=== PATIENT | female | born 1970 | race Caucasian/White ===

== ENCOUNTER 2017-11-04 19:00 | Observation (INO) | payer BC, SELFPAY ==
[2017-11-04 19:01] VITALS: BP 152/78; PULSE 79; RESP 16; TEMP 36.8; O2SAT 99; BMI 33.1
--- NOTE | 2017-11-04 19:44 | CT_ITS ---
STUDY: CT BRAIN WITHOUT CONTRAST REASON FOR EXAM: Female, 47 years old. History of seizures, dystonia RADIATION DOSAGE (If Supplied By Facility): CTDIvol = ( 44.99 ) mGy, DLP = ( 762.36 ) mGycm TECHNIQUE: Transaxial CT imaging of the brain was performed without administration of intravenous contrast material. Individualized dose optimization techniques were used for this CT. COMPARISON: Previous study of 11/14/2014 FINDINGS: There are several calcified scalp nodules measuring up to 1.4 cm. Normal calvarium. Normal size ventricles and extra-axial spaces for the patient's age. Normal white matter tracts of the cerebral hemispheres. Normal basal ganglia and thalami. Normal brainstem. Normal cerebellum. There is no intracranial hemorrhage. There are no findings of an acute ischemic infarction. Normal visualized paranasal sinuses. CT/Brain/Head without Contrast IMPRESSION: Normal unenhanced CT scan of the brain. There are several calcified scalp nodules measuring up to 1.4 cm, similar to the previous study. Electronically Signed: Travis Arreola MD at 20:33 EDT , Service support ,
--- NOTE | 2017-11-04 19:44 | EKG12_ITS ---
Test Reason : SEIZURE Blood Pressure : / mmHG Vent. Rate : 068 BPM Atrial Rate : 068 BPM P-R Int : 180 ms QRS Dur : 074 ms QT Int : 396 ms P-R-T Axes : 037 005 012 degrees QTc Int : 421 ms Normal sinus rhythm Normal ECG Confirmed by JEAN PAUL FINE MD ([id number]), newspaper or periodical editor PEEWEE ESCALANTE ([id number]) on 11/06/2017 2:40:31 PM Referred By: EVA Confirmed By:JEAN PAUL FINE MD
[2017-11-04] MEDS: 0.9% Normal Saline 1,000 ML 150 ML IV (19:51)
[2017-11-04 19:53] LABS: Absolute Lymphocyte Count 2.34 X10^3/ul (0.83-4.51); Absolute Neutrophil Count 5.2 X10^3/uL (2.0-7.7); Basophil# 0.04 X10^3/uL; Basophil% 0.5 % (0-1); Eosinophil# 0.11 X10^3/uL; Eosinophils% 1.3 % (0-5); Hematocrit 39.7 % (37-47); Hemoglobin 13.2 g/dl (12.0-15.0); Lymphocyte # 2.34 X10^3/ul (4.0); Lymphocyte % 27.6 % (19-41); Mean Corp Hgb Conc 33.2 g/gl (32-36); Mean Corpuscular Hgb 26.5 pg (27.0-32.0); Mean Corpuscular Volume 79.6 fL (81-99); Mean Platelet Vol. 10.2 fl (6.2-12.0); Monocyte# 0.77 X10^3/uL; Monocyte% 9.1 % (0-10); Neutrophil % 61.3 % (47-70); POSITIVE COUNT NO; POSITIVE DIFFERENTIAL NO; POSITIVE MORPHOLOGY NO; Platelet Count 313 K/mm3 (150-450); RBC Distribution Width CV 13.7 % (11.6-14.6); RBC Distribution Width SD 39.1 fl (35.1-43.9); Red Blood Count 4.99 M/mm3 (4.2-5.4); White Blood Count 8.5 K/mm3 (4.4-11.0)
[2017-11-04 19:56] LABS: Prothrombin Time (Protime)PT. 13.2 SECONDS (11.7-14.9)
[2017-11-04 19:57] LABS: Partial Thromboplast Time 29.8 Seconds (24.1-36.2)
[2017-11-04 20:06] LABS: Anion Gap 7 (5-15); BUN 13 mg/dL (7-18); BUN/Creat Ratio 16.8 RATIO (10-20); Calcium,Total 8.8 mg/dL (8.5-10.1); Chloride 100 mmol/L (98-107); Creatinine, Serum 0.78 mg/dL (0.55-1.02); EST Glomerular Filtration Rate 84 mL/min (>60); Est Glom Filt Rate - Afr Amer 102 mL/min (>60); Estimated Creatinine Clearance 72.17 ml/min; Glucose 94 mg/dL (74-106); Sodium Level 135 mmol/L (136-145)
--- NOTE | 2017-11-04 20:24 | ED.RN ---
THIS NURSE NOTED DYSTONIA IN BILATERAL HANDS AND FEET, BUT NO STROKE SX CURRENTLY.
--- NOTE | 2017-11-04 21:03 | ED.RN ---
DYSTONIA STILL NOTED IN BILATERAL EXTREMITIES, NO SIGNS OF CVA NOTED.
--- NOTE | 2017-11-04 21:13 | ED.DCSUM_ITS ---
- ER Visit Summary Date of Service: 11/04/17 Chief Complaint: Possible seizure History of Present Illness: The patient is a 47 F with a history of mild shaking seizures. She is currently on Trileptal. Today at 5:30 PM patient had an episode of upper extremity weakness and right facial droop. states this episode resolved after approximately 10 minutes. Symptoms then recurred at 5:50 PM and lasted approximately 5 minutes, then spontaneously resolved. Patient states she could hear her talking to her, but she could not respond. Patient also has a history of dystonia as well as seizures. Physical Examination: Vital signs gross unremarkable. Patient sitting upright in bed no acute distress. Head and neck examination is unremarkable. Heart is regular rate and rhythm. Lung sounds are clear. Abdomen is soft nontender. Neuro exam reveals dystonia with extremity movement, but no new deficits at this time over her baseline. Sensation is intact and normal throughout. Test Results: CBC and chemistry studies are unremarkable. Coags normal. Trileptal level was sent and pending. CT the head reveals normal brain. EKG is sinus at 68 with no sign of acute ischemia. Emergency Department Course and Treatment: Patient was given IV fluids. She has not had recurrent symptoms while in the emergency room. My concern is the patient is having TIAs. She will be admitted for further stroke workup. Treatment Plan: [] Disposition: Admit Impression: TIAs This note was generated with [email or web address] dictation software. It may contain incorrect words, spelling, and punctuation that were not noted in review of the chart prior to signing ED Disposition - Plan for ED Patient: Chief Complaint: Seizure Referrals: Dae Wylie MD [Primary Care Provider] -
--- NOTE | 2017-11-04 21:19 | PCM.HP.STD ---
Problem List (1) TIA (transient ischemic attack) Status: Acute (2) Seizure disorder Status: Chronic (3) Obesity (BMI 30.0-34.9) Status: Chronic History of Present Illness Date of Admission: 11/04/17 Chief Complaint: R facial droop, expressive aphasia The patient is a 47 y/o F w/ PMHx: Seizure disorder s/p Baclofen pump trial x 2, Chronic Dystonia (R sided), Obesity who presents to the [facility] ED on 11/04/17 with history of awakening at ~ 5:30 pm from a nap, walking into the living room where her was present and noted to appear weak, placing both arms on her legs for support while she sat w/ noticeable R facial droop and expressive aphasia which resolved after 10 minutes and then recurred at ~ 5:50 pm and lasted 5 minutes, again resolving with similar findings of expressive aphasia and R facial droop. She notes that she last saw her Neurologist ~ 9 months prior, Dr. Herbert with the [facility]. She notes she has been having more frequent seizures which she describes as benign and also notes auras associated. She has been keeping a journal. She notes still driving and being cleared to drive per Neurologist despite increased seizure activity with reported possible future plans to alter her AED regimen. Work-up in the ED included T 98.2, heart rate 79, BP 152/78, respiratory rate 16, 98% on room air, CBC unremarkable, coags unremarkable, BMP remarkable only for for sodium 135, troponin 0.024, pending oxcarbazepine level, CT brain unremarkable for acute findings with several calcified scalp nodules measuring up to 1.4 cm similar to prior studies. Past Medical History Past Medical History (Chronic Problems): Chronic Problems Seizure disorder (Chronic) Obesity (BMI 30.0-34.9) (Chronic) Allergies Sulfa (Sulfonamide Antibiotics) Allergy (Verified 11/14/14 17:33) Unknown Home Medications: Ambulatory Orders Medication Instructions Recorded Oxcarbazepine [Trileptal] 300 mg PO DAILY 01/24/14 Oxcarbazepine [Trileptal] 450 mg PO QHS 01/24/14 Ibuprofen [Motrin] 800 mg PO TID PRN PRN #21 tablet 11/14/14 Robaxin 1 tab PO BID 11/14/14 Surgical History: - - Carpal tunnel R, Baclofen pump placement and removal x 2 (no current pump in place). Psychiatric History: No pertinent psych hx SIDEROGRAPHER History: No pertinent SIDEROGRAPHER history Lives: Spouse/ Significant Other Smoking Status: Never smoker Tobacco Use: Non-smoker Alcohol: Occasional Drugs: None - *Family History Maternal History Items: Hypertension Paternal History Items: Diabetes, Hypertension Review of Systems Constitutional: Reports: Malaise, Weakness, Fatigue. Denies: Chills, Fever, Weight Change HEENT: Denies: Head Aches, Sinus Congestion, Sinus Drainage Cardiovascular: Denies: Chest Pain, Palpitations Respiratory: Denies: Cough, Shortness of breath at rest, Sputum production Gastrointestinal: Denies: Abdominal Pain, Nausea, Vomiting Genitourinary: Denies: Dysuria Musculoskeletal: Denies: Joint Pain, Joint Tenderness Skin: Denies: Rash, Wounds Neurological: Reports: Change in Speech, Slurred speech, Focal weakness, Incoordination, Numbness, Tremor, Seizures. Denies: Tingling Psychiatric: Denies: Anxiety, Depression, Homicidal Ideations, Suicidal Ideations Hematologic/ Lymphatic: Denies: Easy Bruising, Easy Bleeding VTE Information - Inpt Only VTE Present on Admission: No VTE Mechan Device Prophylaxis: SCD's VTE Pharm Prophylaxis ordered?: Yes Patient Problems: Active and Suspected Problems TIA (transient ischemic attack) (Acute) Subjective: Seated upright in the ED bed, notes return to her baseline, fatigued. Objective: Physical Examination: General: awake, alert, oriented x 3 and cooperative, seated upright in the ED bed in no apparent distress, notes being fatigued. Skin: normal color, turgor, no icterus, cyanosis. HEENT: AT/NC, EOMI, PERRLA, MMM, no carotid bruits or JVD noted. Lungs: CTA bilaterally, moderate effort, mild decrease BL bases, no rales, ronchi or wheezing. Heart: Regular rate and rhythm; no gallop, rub audible. Abdomen: soft, obese, NTTP, ND, normal BS, no HSM. Extremities: no cyanosis, clubbing, or edema. Neurological: patient awake, alert, oriented x 3; cognitive function intact; pupils equally reactive to light and accomodation; cranial nerves II-XII grossly normal, moving all 4 extremities with chronic severe appearing dystonia R sided, no focal specific deficits, strength intact, sensation subjectively mildly more sharp to the R face only including forehead, negative babinski, difficult to assess R FTN/HTS secondary to her chronic dystonia but baseline per her report, unremarkable L FTN, HTS. Psychiatric: affect appears normal, no acute evidence of depressive or anxiety feelings. - Physical Exam Vital Signs Temp Pulse Resp BP Pulse Ox 98.2 F 79 16 152/78 H 99 11/04/17 19:01 11/04/17 19:01 11/04/17 19:01 11/04/17 19:01 11/04/17 19:01 Oxygen Delivery Method Room Air Weight: 187 lb Body Mass Index (BMI) 33.1 Laboratory Tests Past 24 Hrs 11/04/17 11/04/17 11/04/17 19:20 19:20 19:20 WBC 8.5 RBC 4.99 Hgb 13.2 Hct 39.7 MCV 79.6 L MCH 26.5 L MCHC 33.2 RDW 13.7 RDW Differential 39.1 Plt Count 313 MPV 10.2 Immature Gran % (Auto) 0.200 Neut % (Auto) 61.3 Lymph % (Auto) 27.6 Wilkinson % (Auto) 9.1 Eos % (Auto) 1.3 Baso % (Auto) 0.5 Absolute Neuts (auto) 5.2 Absolute Lymphs (auto) 2.34 Total Counted Not Reportable PT 13.2 INR 1.0 APTT 29.8 Sodium 135 L Potassium 4.0 Chloride 100 Carbon Dioxide 28.0 Anion Gap 7 BUN 13 Creatinine 0.78 Estim Creat Clear Calc 72.17 Est GFR (MDRD) Af Amer 102 Est GFR (MDRD) Non-Af 84 BUN/Creatinine Ratio 16.8 Glucose 94 Calcium 8.8 Troponin I 0.024 Oxcarbazepine 11/04/17 19:20 WBC RBC Hgb Hct MCV MCH MCHC RDW RDW Differential Plt Count MPV Immature Gran % (Auto) Neut % (Auto) Lymph % (Auto) Wilkinson % (Auto) Eos % (Auto) Baso % (Auto) Absolute Neuts (auto) Absolute Lymphs (auto) Total Counted PT INR APTT Sodium Potassium Chloride Carbon Dioxide Anion Gap BUN Creatinine Estim Creat Clear Calc Est GFR (MDRD) Af Amer Est GFR (MDRD) Non-Af BUN/Creatinine Ratio Glucose Calcium Troponin I Oxcarbazepine Pending Assessment/Plan All Active Problems TIA (transient ischemic attack) (Acute) The patient is a 47 y/o F w/ PMHx: Seizure disorder s/p Baclofen pump trial x 2, Chronic Dystonia, Obesity who presents to the [facility] ED on 11/04/17 with history of awakening at ~ 5:30 pm from a nap, walking into the living room where her was present and noted to appear weak, placing both arms on her legs for support while she sat w/ noticeable R facial droop and expressive aphasia which resolved after 10 minutes and then recurred at ~ 5:50 pm and lasted 5 minutes, again resolving with similar findings of expressive aphasia and R facial droop. (1) Expressive aphasia and right facial droop concerning for TIA/CVA: Work-up in the ED included T 98.2, heart rate 79, BP 152/78, respiratory rate 16, 98% on room air, CBC unremarkable, coags unremarkable, BMP remarkable only for for sodium 135, troponin 0.024, pending oxcarbazepine level, CT brain unremarkable for acute findings with several calcified scalp nodules measuring up to 1.4 cm similar to prior studies. Will admit to PCU, will obtain MRI Brain, MRA Head and Neck, ECHO, PT/OT/Speech/Nutrition evaluation per protocol. Will consult Neurology for evaluation. Will monitor BP and initiate regimen if above goal, maintain on asa, add statin w/ AM FLP, fall precautions. Mag, TSH pending. Will maintain on seizure precautions but per description lower suspicion atypical seizure activity. (2) Seizure Disorder w/ Chronic Dystonia: Maintain on home tripletal regimen, pending ED level, current presentation not consistent with any prior seizures, history of baclofen pump x 2. She notes that she last saw her Neurologist ~ 9 months prior, Dr. Herbert with the [facility]. She notes she has been having more frequent seizures which she describes as benign and also notes auras associated. She has been keeping a journal. She notes still driving and being cleared to drive per Neurologist despite increased seizure activity with reported possible future plans to alter her AED regimen. Continue home robaxin regimen for her dystonia. (3) Obesity: Weight loss and lifestyle changes encouraged. (4) DVT prophylaxis: SCD, Lovenox. Code Visit OBSV E&M: 11224 Initial observation care L3
[2017-11-04 21:30] VITALS: BP 164/61; BP 166/62; PULSE 65; PULSE 68; RESP 18; RESP 22; TEMP 36.8; TEMP 36.9; O2SAT 100
[2017-11-04 22:05] VITALS: PULSE 66
[2017-11-04 22:25] VITALS: BP 159/84; BP 164/62; PULSE 64; RESP 18; TEMP 36.8; O2SAT 99
--- NOTE | 2017-11-04 22:27 | ECHOD_ITS ---
Reason For Study: TIA/Stroke Procedure This was a 2D Doppler, Color Flow transthoracic echocardiogram. Exam performed portable in patient room. Left Ventricle Normal LV size. Left ventricular systolic function is normal. The estimated ejection fraction is 60 %. Normal diastology for age. No regional wall motion abnormalities noted. Right Ventricle Normal RV size. Normal systolic function. Atria Normal left atrium. Normal right atrium. Bubble contrast study negative for right to left interatrial shunt. Mitral Valve Normal mitral valve. Trivial eccentric mitral valve insufficiency. Tricuspid Valve Normal tricuspid valve. Mild tricuspid valve insufficiency. Pulmonary artery systolic pressure is 24 mmHg. Aortic Valve Trisinus/trileaflet aortic valve. Pulmonic Valve Normal pulmonic valve. Great Vessels Normal aortic root. The pulmonary artery is normal size. Normal inferior vena cava. Pericardium/Pleural No pericardial effusion. Medication Performed a rapid injection of agitated mix of 9 cc saline and 1cc air to assess for atrial septal defect. MMode/2D Measurements & Calculations LVIDd: 4.8 cm IVSd: 0.92 cm Ao root diam: 2.3 cm LVIDs: 2.8 cm LVPWd: 0.83 cm RVDd: 3.1 cm FS: 41.2 % LAV(MOD-bp): 48.6 ml LVAd ap4: 27.8 cm2 SV(MOD-sp4): 56.5 ml LAV(MOD-bp) Indexed: 25.9 ml/m2 EDV(MOD-sp4): 84.1 ml LAV(MOD-sp2): 43.5 ml EDV(sp4-el): 86.2 ml LAV(MOD-sp4): 47.0 ml LVAs ap4: 14.1 cm2 ESV(MOD-sp4): 27.6 ml ESV(sp4-el): 27.1 ml EF(MOD-sp4): 67.2 % EF(sp4-el): 68.6 % SV(sp4-el): 59.1 ml LA A4 area: 18.0 cm2 RA A4 area: 11.9 cm2 Doppler Measurements & Calculations MV E max matt: 80.0 cm/sec Lat Peak E' Matt: 13.5 cm/sec Med Peak E' Matt: 8.3 cm/sec MV A max matt: 61.1 cm/sec E/E' lat: 5.9 E/E' med: 9.7 MV E/A: 1.3 Ao V2 max: 142.4 cm/sec LV V1 max: 117.0 cm/sec PA V2 max: 117.5 cm/sec Ao max P.1 mmHg LV V1 max P.5 mmHg Ao V2 mean: 101.9 cm/sec Ao mean P.5 mmHg Ao V2 VTI: 34.0 cm TR max matt: 227.7 cm/sec TR max P.7 mmHg Interpretation Summary Normal LV size. Left ventricular systolic function is normal. The estimated ejection fraction is 60 %. Bubble contrast study negative for right to left interatrial shunt. Mild tricuspid valve insufficiency. Ordering Physician: Shabana Hansen Referring Physician: Dae Wylie Performed By: Gianna Corrales RDCS, GUY
[2017-11-04 22:28] VITALS: BMI 34.7
[2017-11-04 22:39] VITALS: BMI 34.7
[2017-11-04 22:54] LABS: Magnesium 2.1 mg/dL (1.6-2.6); Thyroid Stim Hormone (TSH) 2.08 uIU/mL (0.358-3.74)
[2017-11-04 22:57] VITALS: BMI 34.7
[2017-11-04 23:00] VITALS: PULSE 62
[2017-11-04] MEDS: Acetaminophen 325 MG Tablet 650 MG PO (23:18)
[2017-11-04] MEDS: 0.9% NaCl Peripheral Flush Adult/Peds IV (23:20)
[2017-11-04] MEDS: Aspirin 81 MG TAB.CHEW PO (23:20)
[2017-11-04] MEDS: 0.9% Normal Saline 1,000 ML 100 ML IV (23:20)
[2017-11-04] MEDS: Famotidine 20 MG Tablet PO (23:20)
[2017-11-04] MEDS: OXcarbazepine 150 MG Tablet 450 MG PO (23:20)
[2017-11-05] VITALS (7 sets, daily range): BP systolic 136–146; BP diastolic 59–75; PULSE 55–75; RESP 16–18; TEMP 36.8; O2SAT 98–100; BMI 34.7
--- NOTE | 2017-11-05 05:00 | MRI_ITS ---
STUDY: MRA OF THE HEAD WITHOUT CONTRAST REASON FOR EXAM: Female, 47 years old. aphasia, rt facial droop, weakness. TECHNIQUE: 3-D [id number] (TOF) imaging was performed with MIPs. The study was performed unenhanced. COMPARISON: None. FINDINGS: Decreased size of the right cavernous carotid artery with a normal supraclinoid bifurcation. Normal left cavernous carotid artery with a normal supraclinoid bifurcation. Normal right A1 segments of the anterior cerebral artery. Normal left A1 segments of the anterior cerebral artery. Normal intact anterior communicating artery (ACOM). Normal bilateral A2 segments of the anterior cerebral arteries. Right MCA: There is irregularity of the right M1 segment with moderate luminal narrowing, suggesting atherosclerotic plaque formation, without an occlusion. The M2 branches are patent. Left MCA: There is irregularity of the left M1 branches with mild luminal narrowing, suggesting atherosclerotic plaque formation, without an occlusion. The M2 branches are patent. There is non-visualization of the right posterior communicating artery (PCOM). There is non-visualization of the left posterior communicating artery (PCOM). Normal bilateral vertebral arteries. Normal basilar artery with a normal basilar bifurcation. The visualized bilateral superior cerebellar (SCA) arteries are normal. Normal bilateral P1, P2 and visualized P3 segments of the posterior cerebral arteries. There is no demonstrated aneurysm of the [place]. There is no major vessel occlusion or hemodynamically significant stenosis. There is no demonstrated abnormality of the visualized brain. MRI/MRA Head ONLY without Contrast IMPRESSION: Moderate stenosis of the right M1. Mild stenosis of the left M1. Electronically Signed: Bernadine Luevano MD at 10:03 EDT Tel , Service support ,
--- NOTE | 2017-11-05 05:00 | MRI_ITS ---
STUDY: MRA NECK WITHOUT CONTRAST REASON FOR EXAM: Female, 47 years old. cva, rt facial droop, weakness, aphasia. TECHNIQUE: Source images were obtained, MIPs were performed. The study was performed unenhanced. COMPARISON: None. FINDINGS: RIGHT CAROTID ARTERIES: Normal right common carotid artery (CCA). Normal right common carotid bulb. Normal origin of the right internal carotid (ICA) artery without a hemodynamically significant stenosis. Normal visualized cervical portion of the right internal carotid artery. Normal origin of the right external carotid artery (ECA). LEFT CAROTID ARTERIES: Normal left common carotid artery (CCA). Normal left common carotid bulb. Normal origin of the left internal carotid (ICA) artery without a hemodynamically significant stenosis. Normal visualized cervical portion of the left internal carotid artery. Normal origin of the left external carotid artery (ECA). VERTEBRAL ARTERIES: Normal antegrade flow within the bilateral vertebral artery without a hemodynamically significant stenosis. MRI/MRA Neck without Contrast IMPRESSION: Normal bilateral cervical carotid and vertebral arteries. Electronically Signed: Bernadine Luevano MD at 9:28 EDT Tel , Service support ,
--- NOTE | 2017-11-05 05:00 | MRI_ITS ---
STUDY: MRI BRAIN WITHOUT CONTRAST REASON FOR EXAM: Female, 47 years old. cva, rt facial droop,aphasia,weakness. TECHNIQUE: Standardized multiplanar fat and water weighted pulse sequences were obtained. COMPARISON: None. FINDINGS: Normal size of the ventricles and extra-axial spaces for the patient's age. Normal white matter tracts of the supratentorial brain. Normal bilateral basal ganglia. Normal thalami. There is no extra-axial fluid accumulation. Normal flow voids within the major intracranial circulation suggesting patency by spin echo criteria. Normal sella turcica, pituitary gland, infundibular stalk, optic chiasm and hypothalamus. Normal tectal plate and pineal gland. Normal midbrain, vinayak and medulla. Normal cerebellum. Normal basal cisterns. Normal bilateral temporal bones. Normal bilateral internal auditory canals. No demonstrated orbital abnormality, within the constraints of a routine brain study. Normal visualized paranasal sinuses. Normal calvarium and skull base. Normal visualized soft tissue structures. Normal visualized upper cervical spine. MRI/Brain without Contrast IMPRESSION: Normal unenhanced MRI of the brain. Electronically Signed: Bernadine Luevano MD at 9:26 EDT Tel , Service support ,
[2017-11-05 07:00] LABS: Cholesterol 175 mg/dL (200); High Density Lipoprotein 62 mg/dL; Triglycerides 56 mg/dL; Very Low Density Lipoprotein 11 mg/dL (5-40)
[2017-11-05] MEDS: Famotidine 20 MG Tablet PO (07:33)
[2017-11-05] MEDS: OXcarbazepine 300 MG Tablet PO (07:33)
[2017-11-05] MEDS: Aspirin 81 MG TAB.CHEW PO (07:34)
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
[2017-11-05] MEDS: Methocarbamol 500 MG Tablet PO (10:06)
[2017-11-05] MEDS: 0.9% NaCl Peripheral Flush Adult/Peds IV (10:06)
[2017-11-05] MEDS: 0.9% Normal Saline 1,000 ML 100 ML IV (10:07)
--- NOTE | 2017-11-05 14:10 | DCINST_ITS ---
- Discharge Diagnoses Current Active Problems: Current Active and Chronic Problems TIA (transient ischemic attack) (Acute) Seizure disorder (Chronic) Obesity (BMI 30.0-34.9) (Chronic) You will use the following diet at home:: No restrictions Your food should be the consistency of: Regular Your liquids should be the consistency of: Regular/Thin Discharge Activity: May Not Drive Call your doctor if you observe: Dizziness, Fainting spells Allergies/Adverse Reactions: Allergies Sulfa (Sulfonamide Antibiotics) Allergy (Verified 11/14/14 17:33) Unknown Medications to take at Discharge Oxcarbazepine [Trileptal] 300 mg PO DAILY 01/24/14 Oxcarbazepine [Trileptal] 450 mg PO QHS 01/24/14 Ibuprofen [Motrin] 800 mg PO TID PRN PRN #21 tablet 11/14/14 Methocarbamol [Robaxin] 1,000 mg PO QHS 11/05/17 Methocarbamol [Robaxin] 500 mg PO DAILY 11/05/17 Primary Care Physician: Dae Wylie MD [Primary Care Provider] - Please follow up with your Primary Care Physician in: 3-5 days Test Results: Test results from this visit will be discussed in further detail at your follow- up appointment, if applicable. Please Follow Up With: Dr. Taylor When: 3-5 days
--- NOTE | 2017-11-05 14:10 | PCM.DC.SUM ---
Discharge Date and Diagnosis - Problem List Patient Problems: Active and Suspected Problems TIA (transient ischemic attack) (Acute) Date of Admission: 11/04/17 Date of Discharge: 11/05/17 - Primary Discharge Diagnosis Active and Suspected Problems TIA (transient ischemic attack) (Acute) - Secondary Discharge Diagnosis Chronic Problems Seizure disorder (Chronic) Obesity (BMI 30.0-34.9) (Chronic) Hospital Course and Treatment Imaging Results: Brain MRI: IMPRESSION: Normal unenhanced MRI of the brain. Head MRA: IMPRESSION: Moderate stenosis of the right M1. Mild stenosis of the left M1. Neck MRA: IMPRESSION: Normal bilateral cervical carotid and vertebral arteries. Consults: Neurology Operations: None Procedures: None Summary of Care Provided: HPI: The patient is a 47 y/o F w/ PMHx: Seizure disorder s/p Baclofen pump trial x 2, Chronic Dystonia (R sided), Obesity who presents to the [facility] ED on 11/04/17 with history of awakening at ~ 5:30 pm from a nap, walking into the living room where her was present and noted to appear weak, placing both arms on her legs for support while she sat w/ noticeable R facial droop and expressive aphasia which resolved after 10 minutes and then recurred at ~ 5:50 pm and lasted 5 minutes, again resolving with similar findings of expressive aphasia and R facial droop. She notes that she last saw her Neurologist ~ 9 months prior, Dr. Herbert with the [facility]. She notes she has been having more frequent seizures which she describes as benign and also notes auras associated. She has been keeping a journal. She notes still driving and being cleared to drive per Neurologist despite increased seizure activity with reported possible future plans to alter her AED regimen. Work-up in the ED included T 98.2, heart rate 79, BP 152/78, respiratory rate 16, 98% on room air, CBC unremarkable, coags unremarkable, BMP remarkable only for for sodium 135, troponin 0.024, pending oxcarbazepine level, CT brain unremarkable for acute findings with several calcified scalp nodules measuring up to 1.4 cm similar to prior studies. Vital Signs - 24 hr Temp Pulse Resp BP BP Pulse Ox 11/05/17 11:23 98 11/05/17 11:00 60 11/05/17 10:00 98.2 F 75 16 136/75 H 100 11/05/17 07:00 55 L 11/05/17 05:59 98.2 F 57 L 18 146/60 H 99 11/05/17 03:00 60 11/05/17 02:10 98.2 F 61 18 142/59 H 99 11/04/17 23:00 62 11/04/17 22:25 98.2 F 64 18 159/84 H 164/62 H 99 11/04/17 22:05 66 11/04/17 21:30 98.2 F 68 18 166/62 H 100 11/04/17 19:01 98.2 F 79 16 152/78 H 99 General: Alert, Oriented x3, Cooperative, No apparent distress HEENT: Atraumatic, PERRLA, EOMI, Normocephalic Oral: Moist Mucosa Neck: Supple, No JVD Lungs: Clear to auscultation, Normal air movement, No rhonchi, No wheeze, No rales Cardiovascular: Regular rate, Regular Rhythm, Normal S1, Normal S2, No murmurs Abdomen: Soft, Non Tender, Non-Distended, No Hepato-splenomegaly Extremities: No edema, Capillary Refill Less than 3 Seconds Skin: No rashes, No breakdown Neurological: Cranial nerves II-XII grossly intact, Motor Exam 5/5 strength throughout, Sensory exam intact to light touch and pain, tremor in the RUE Psych/Mental Status: Normal Affect, Appropriate Hospital Course: 1. Seizure/Movement disorder - Presented because the presentation of this seizure was different than her usual with a facial droop. Stroke work-up was negative and she was cleared for discharge by Neurology on only her home medications. She states that she has been having more frequent seizure and the trileptal was her first antiepileptal medications she was tried on. She does want to go home and I expressed that she is not allowed to drive under any circumstance which she agrees to. She is to f/u with her neurologist at the [facility] for possible medication adjustment. She would like to eventually find a neurologist closer to home if possible. She did not have a seizure while in the hospital. Discharge Activity: May Not Drive Call your doctor if you observe: Dizziness, Fainting spells Home Medications: Medications to take at Discharge Oxcarbazepine [Trileptal] 300 mg PO DAILY 01/24/14 Oxcarbazepine [Trileptal] 450 mg PO QHS 01/24/14 Ibuprofen [Motrin] 800 mg PO TID PRN PRN #21 tablet 11/14/14 Methocarbamol [Robaxin] 1,000 mg PO QHS 11/05/17 Methocarbamol [Robaxin] 500 mg PO DAILY 11/05/17 Primary Care Physician: Dae Wylie MD [Primary Care Provider] - Please follow up with your Primary Care Physician in: 3-5 days Please Follow Up With: Dr. Taylor When: 3-5 days Disposition: Home Minutes spent on discharge:: 35 Patient Condition:: Good Medical Necessity - Tobacco Use Smoking Status: Never smoker Tobacco Use: Non-smoker Meaningful Use Info Meaningful Use Diagnoses (Choose all that apply): None applicable Code Visit Inpatient E&M: 38870 Disch Hosp
--- NOTE | 2017-11-05 14:48 | PHA.DC.MR ---
Pharmacy Service has performed discharge medication reconciliation for this patient. No new medications added from this admission, home medications reviewed. The patient's discharge medication list was reviewed for discrepancies and discrepancies were resolved.
[2017-11-08 13:42] LABS: Trileptal-Oxcarbazepine 28 ug/mL (10-35)
== END 2017-11-05 15:17 | disposition home or self-care (01) ==
LOC: ED 20:15 → PCU 21:47
PROVIDERS: Admitting Provider Family Medicine; Emergency Provider Emergency Medicine; Family Provider Family Medicine; PCP Family Medicine; Visit Provider Family Medicine
DX: R41.82 Altered mental status, unspecified (principal); G40.909 Epilepsy, unspecified, not intractable, without status epilepticus; R29.810 Facial weakness; R53.1 Weakness; E66.9 Obesity, unspecified; G24.9 Dystonia, unspecified; R47.01 Aphasia; Z79.899 Other long term (current) drug therapy; Z68.34 Body mass index [BMI] 34.0-34.9, adult; Z71.3 Dietary counseling and surveillance; R47.81 Slurred speech; I07.1 Rheumatic tricuspid insufficiency
CPT/HCPCS: 36415; 70450; 70544; 70547; 70551; 80048; 80061; 82542; 83735; 84443; 84484; 85025; 85610; 85730; 93005; 93306; 96360; 96361; 97802; 99218; 99283; J7030; A4216; G0378

== ENCOUNTER → 2018-03-01 17:44 | Outpatient (CLI) | payer BC, SELFPAY ==
--- NOTE | 2018-03-01 17:45 | MRI_ITS ---
STUDY: MRI CERVICAL SPINE WITHOUT CONTRAST REASON FOR EXAM: Female, 47 years old. Dystonia and paresthesia TECHNIQUE: Standardized fat and water weighted pulse sequences were obtained in the sagittal and axial planes. COMPARISON: None FINDINGS: Normal foramen magnum and brainstem-cervical cord junction. Normal craniovertebral junction. Normal anterior atlantoaxial articulation. Normal odontoid process. Decreased cervical lordosis. Normal vertebral bodies and posterior osseous elements. C2-3: Normal endplates. Normal disc height, signal and morphology. Normal central canal and intervertebral neural foramina. C3-4: Normal endplates. Normal disc height, signal and morphology. Normal central canal and intervertebral neural foramina. C4-5: Normal endplates. Normal disc height, signal and morphology.. Normal central canal and intervertebral neural foramina. C5-6: Normal endplates. Normal disc height, signal and minor bulging of the disc.. Normal central canal and intervertebral neural foramina. C6-7: Normal endplates. Normal disc height, signal and morphology. Normal central canal and intervertebral neural foramina. C7-T1: Normal endplates. Normal disc height, signal and morphology. Normal central canal and intervertebral neural foramina. Normal cervical cord. Normal visualized soft tissue structures. MRI/Spine Cervical (Routine) IMPRESSION: No evidence for acute fracture or other bony pathology. Minor bulging of the disc. Without spinal stenosis or cord compression. Electronically Signed: Pablito Landrum MD at 19:23 EST , Service support ,
== END ==
PROVIDERS: Family Provider Family Medicine; PCP Family Medicine; Referring Provider Clinical Nurse Specialist Acute Care; Visit Provider Clinical Nurse Specialist Acute Care
DX: G24.9 Dystonia, unspecified (principal); R20.2 Paresthesia of skin
CPT/HCPCS: 72141

== ENCOUNTER 2019-08-26 11:02 | Emergency (ER) | payer BC, SELFPAY ==
[2019-08-26 11:03] VITALS: BP 180/89; PULSE 104; RESP 20; TEMP 36.3; O2SAT 99; BMI 35.7
--- NOTE | 2019-08-26 11:26 | VDLE_ITS ---
Reason For Study: pain Procedure LEFT Exam performed portable in ED. GSV is normal. The exam was abbreviated due to the COVID 19 CFV is compressible, spontaneous, phasic, protocol. competent, and demonstrates normal The exam was diagnostic. augmentation. A preliminary report was called and/or faxed FV is compressible, spontaneous, phasic, to Dr. Uriarte. competent and demonstrates normal augmentation. POP V is compressible, spontaneous, phasic, competent and demonstrates normal augmentation. T/P Trunk is compressible. PTV is compressible. LT PerV is compressible. Interpretation Summary There is no evidence of left lower extremity deep vein thrombosis. Left great saphenous vein appears patent and compressible segmentally. Abbreviated Covid-19 protocol Ordering Physician: Gerardo Uriarte Performed By: Thony Griffiths RVT
--- NOTE | 2019-08-26 11:28 | ED.VIS.GEN ---
History of Present Illness Chief Complaint: Wound Narrative: 48-year-old female presenting with left leg pain which was fleeting earlier. She states she could see her varicosity on her left leg bulging. She had some tingling in her leg which is now gone. She has been able to ambulate. She has no history of DVT/PE. She is not on blood thinners. Past Medical History - Allergies and Home Meds Allergies/Adverse Reactions: Allergies Sulfa (Sulfonamide Antibiotics) Allergy (Verified 08/26/19 11:05) Unknown Primary Care Physician: Dae Wylie MD [Primary Care Provider] - Prior records reviewed: Yes Surgical History: - - Carpal tunnel R, Baclofen pump placement and removal x 2 (no current pump in place). Smoking Status: Never smoker Drugs: None - Family History Maternal Family History: Reports: Hypertension Paternal Family History: Reports: Diabetes, Hypertension Review of Systems General: Denies: Chills, Fever Eyes: Denies: Visual changes - bilaterally, Diplopia ENT: Denies: Rhinorrhea, Sore throat Cardiovascular: Denies: Chest pain, Palpitations, Heart racing Respiratory: Denies: Dyspnea, Cough Gastrointestinal: Denies: Abdominal pain Musculoskeletal: Reports: Extremity Pain - Left leg pain in the calf Skin: Denies: Rash, Abscess Psych: Denies: Depression, Anxiety Hematologic: Denies: Easy bruising, Easy bleeding Physical Exam Vital Signs/Narrative: Vital Signs Temp Pulse Resp BP Pulse Ox 08/26/19 11:03 97.4 F L 104 H 20 H 180/89 H 99 Inital Vital Signs reviewed: Yes General: Well nourished Eyes: Perrl, EOMI Cardiovascular: Regular rate, Regular rhythm Respiratory: No distress Extremities: - - Varicosities noted on the left lower extremity. These are nontender. Pedal pulses are intact in the left foot. There is no obvious edema. Sensation and motor is intact. Skin: - - Varicosities as described above Neurological: Alert, Oriented x3 Psychological: Normal affect Diagnostic/Tx/Re-eval Duplex left lower extremity: Negative for DVT. - Medical Decision Making Presents with a cramping leg pain and states that her varicosity was bulging. On examination her pain is resolved. There is no bulging varicosity. Neuromotor is all intact. Pulses are intact. Patient had DVT study which was negative. patient will be discharged home in stable condition. She is given return precautions. ED Disposition - Plan for ED Patient: Disposition: Home or Assisted Living Diagnosis: Leg pain, left, Varicose vein of leg Instructions: ED Veins Varicose Referrals: Dae Wylie MD [Primary Care Provider] -
== END 2019-08-26 12:23 | disposition home or self-care (01) ==
LOC: ED 12:14
PROVIDERS: Emergency Provider Student in an Organized Health Care Education/Training Program; PCP Family Medicine
DX: M79.605 Pain in left leg (principal); I83.92 Asymptomatic varicose veins of left lower extremity; Z79.82 Long term (current) use of aspirin
CPT/HCPCS: 93971; 99282

== ENCOUNTER → 2019-09-24 13:29 | Outpatient (CLI) | payer BC, SELFPAY ==
[2019-08-26 11:03] VITALS: BMI 35.7
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
== END ==
PROVIDERS: PCP Family Medicine; Referring Provider Family Medicine; Visit Provider Family Medicine
DX: R13.12 Dysphagia, oropharyngeal phase (principal)
CPT/HCPCS: 74230; 92611

== ENCOUNTER 2019-10-09 19:17 | Emergency (ER) | payer BC, SELFPAY ==
[2019-10-09 19:18] VITALS: BP 153/96; PULSE 85; RESP 18; TEMP 36.6; O2SAT 99; BMI 31.5
--- NOTE | 2019-10-09 20:46 | ED.DCSUM_ITS ---
History of Present Illness Chief Complaint: Lower Extremity Injury Informant: Patient Narrative: 48-year-old female presenting for left medial leg pain and swelling. She states it is also warm to the touch. She does not remember any injury to this area. This started earlier this afternoon and has become less red but is more spread out in this area. She states prior to this she had a bulging vein which is now gone. No history of DVT/PE. She is had an episode of this before which self re solved a he did have a DVT study previously. This was negative. No systemic signs or symptoms. - Past Medical History (1) TIA (transient ischemic attack) Status: Chronic (2) Seizure disorder Status: Chronic Past Medical History - Allergies and Home Meds Allergies/Adverse Reactions: Allergies Sulfa (Sulfonamide Antibiotics) Allergy (Verified 10/09/19 19:18) Unknown Primary Care Physician: Dae Wylie MD [Primary Care Provider] - Prior records reviewed: Yes Past Medical History: - - Reviewed and problem list Surgical History: noncontributory, - - Carpal tunnel R, Baclofen pump placement and removal x 2 (no current pump in place). Lives: With Family Smoking Status: Never smoker Alcohol: None Drugs: None - Family History Maternal Family History: Reports: Hypertension Paternal Family History: Reports: Diabetes, Hypertension Review of Systems General: Denies: Chills, Fever, Sweats Eyes: Denies: Visual changes - bilaterally, Diplopia ENT: Denies: Rhinorrhea, Sore throat Cardiovascular: Denies: Chest pain, Palpitations Respiratory: Denies: Dyspnea, Cough, Dyspnea on exertion Gastrointestinal: Denies: Abdominal pain, Nausea, Vomiting, Diarrhea, Melena, Hematochezia Genitourinary: Denies: Dysuria, Hematuria, Frequency Musculoskeletal: Reports: Extremity Pain - Left medial upper calf pain, - Skin: Reports: Rash - Left medial upper calf Neurological: Denies: Headache, Weakness Physical Exam Vital Signs/Narrative: Vital Signs Temp Pulse Resp BP Pulse Ox 10/09/19 19:18 97.8 F 85 18 153/96 H 99 General: Well nourished, No Acute Distress Head: Normocephalic, Atraumatic Eyes: Perrl, EOMI Cardiovascular: Regular rate, Regular rhythm Respiratory: No distress, CTA bilaterally Extremities: Nontender, No edema Skin: Rash - 4 centimeter circular area of erythema and warmth on the upper medial left calf. The skin is slightly indurated in this area. This is tender to touch. Calf compartments are soft. Diagnostic/Tx/Re-eval Clinical Impression(s) from Imaging Studies Venous Duplex 10/09/19 20:56 IMPRESSION: No evidence of deep venous thrombosis in the left lower extremity. Thrombosed superficial veins in the left upper medial calf. Electronically Signed: Jose Sierra, at 22:00 EDT Tel , Service support , - Medical Decision Making Patient presents with left medial upper calf pain. She states it was more red prior to arrival and seems to be dissipating. It does appear that It slightly inflamed in this area. Patient states that she had a bulging vein i n this area prior to the episode. Duplex of the left lower extremity which shows superficial thrombophlebitis which would fit with her story. She is counseled on NSAIDs and ice for pain. I do not believe she needs antibiotics at this time. Patient will be discharged home in stable condition. Impression: 1. Superficial thrombophlebitis ED Disposition - Plan for ED Patient: Disposition: Home or Assisted Living Instructions: ED Phlebitis Superficial Referrals: Dae Wylie MD [Primary Care Provider] -
--- NOTE | 2019-10-09 20:56 | US_ITS ---
STUDY: VENOUS DOPPLER ULTRASOUND - LEFT LOWER EXTREMITY REASON FOR EXAM: Female, 48 years old. LT UPPER MEDIAL CALF AREA OF HEAT AND REDNESS WITH PALP LUMPS TECHNIQUE: Ultrasound evaluation of the deep vein system to include batista-scale imaging and compression was performed. Batista-scale imaging and Doppler sonographic evaluation, including duplex spectral analysis and qualitative color flow sonography, was performed. COMPARISON: None. FINDINGS: Common Femoral Vein: Normal compression, spontaneity and augmentation. Normal color Doppler. Common Femoral Vein/Greater Saphenous Junction: Normal compression, spontaneity and augmentation. Normal color Doppler. Femoral Proximal: Normal compression, spontaneity and augmentation. Normal color Doppler. Femoral Middle: Normal compression, spontaneity and augmentation. Normal color Doppler. Femoral Distal: Normal compression, spontaneity and augmentation. Normal color Doppler. Popliteal Vein: Normal compression, spontaneity and augmentation. Normal color Doppler. Posterior Tibial Vein: Normal compression, spontaneity and augmentation. Normal color Doppler. Peroneal Vein: Normal compression, spontaneity and augmentation. Normal color Doppler. There are thrombosed superficial veins in the left upper medial calf. US/Venous Duplex Imag/Limited/Uni IMPRESSION: No evidence of deep venous thrombosis in the left lower extremity. Thrombosed superficial veins in the left upper medial calf. Electronically Signed: Jose Sierra, at 22:00 EDT Tel , Service support ,
[2019-10-09 22:42] VITALS: BP 127/95; PULSE 78; RESP 15; O2SAT 98
== END 2019-10-09 22:44 | disposition home or self-care (01) ==
LOC: ED 20:53
PROVIDERS: Emergency Provider Student in an Organized Health Care Education/Training Program; PCP Family Medicine
DX: I80.02 Phlebitis and thrombophlebitis of superficial vessels of left lower extremity (principal); G40.909 Epilepsy, unspecified, not intractable, without status epilepticus; Z86.73 Personal history of transient ischemic attack (TIA), and cerebral infarction without residual deficits; Z79.82 Long term (current) use of aspirin
CPT/HCPCS: 93971; 99282

== ENCOUNTER → 2020-02-23 14:33 | Outpatient (CLI) | payer BC, SELFPAY ==
--- NOTE | 2020-02-23 14:35 | VDLE_ITS ---
Reason For Study: Leg Pain RIGHT LEFT CFV is compressible, spontaneous, phasic, GSV is normal. competent and demonstrates normal CFV is compressible, spontaneous, phasic, augmentation. competent, and demonstrates normal Procedure augmentation. Exam performed in department. FV is compressible, spontaneous, phasic, A preliminary report was called and/or faxed competent and demonstrates normal to Dr. Coffey. augmentation. POP V is compressible, spontaneous, phasic, competent and demonstrates normal augmentation. T/P Trunk is compressible. PTV is compressible. LT PerV is compressible. Lt knee varicosity is dilated and non compressible consistent with acute SVT, small segment. Interpretation Summary Deep veins of the left lower extremity are patent and compressible segmentally. There is no evidence of left lower extremity deep vein thrombosis. Valvular competence appears intact within the proximal deep venous system on the left . The left great saphenous vein appears patent and compressible segmentally. Acute superficial thrombophlebitis is noted in a superficial varicosity near the left knee. Ordering Physician: Anatoly Coffey Referring Physician: Dae Wylie Performed By: Gianna Corrales, [place], RVT
== END ==
PROVIDERS: PCP Family Medicine; Referring Provider Surgery; Visit Provider Surgery
DX: I80.3 Phlebitis and thrombophlebitis of lower extremities, unspecified (principal)
CPT/HCPCS: 93971

== ENCOUNTER 2020-03-03 15:00 | Outpatient (RCR) | payer BC, SELFPAY ==
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
== END 2020-03-03 19:00 | disposition home or self-care (01) ==
LOC: SP 15:00
PROVIDERS: PCP Family Medicine
DX: R49.8 Other voice and resonance disorders (principal); R13.10 Dysphagia, unspecified
CPT/HCPCS: 92507; 92526; 92610

== ENCOUNTER 2020-03-31 15:00 | Outpatient (RCR) | payer BC, SELFPAY | END 2020-03-31 19:00 | disposition home or self-care (01) | LOC: SP 15:00 | PROVIDERS: PCP Family Medicine | DX: R49.8 Other voice and resonance disorders (principal); R13.10 Dysphagia, unspecified ==

== ENCOUNTER 2021-05-24 14:00 | Outpatient (RCR) | payer BC, SELFPAY ==
--- NOTE | 2020-10-18 15:05 | HP.PTEVAL_ITS ---
Patient's Visit Information JULIAN BLACK is a 49 year old F referred to Physical Therapy by DONNY ROSS with a diagnosis of Dystonia. Date of Evaluation: 10/18/20 Physical Therapist: Troy Saunders, PT, ATC - Visit Plan Frequency: 2-3x /Week Duration: 4-6 Weeks Plan: B LE strengthening and stretching, balance and prorio ex's, core strengthening, nustep, and HEP - Subjective Pt reports she has dystonia for over 19 years. Pt reports her condition is is not supposed to progress, but it has been for over the past 6 months. Pt notes that her R hand and ankle keep wanting to turn inwards on her. Pt notes she has noticed an increase in unsteady gait over this span as well. Pt reports she had PT for this in 2011 which worked more on stretching and strengthening, as well as gait training in order to help her balance. Pt reports her main reason for being here today is to get help for her balance and help alleviate some of her pain in the R ankle/foot, as well as her R hand. Pt reports 4/10 pain in her R hand and foot currently, 8/10 pain at worst (with increased activity. - Pain R hand and foot Pain Intensity (Out of 10): 4 Pain Intensity Range: 8 - Objective Neuro: B UE and LE sensation is WNL to light touch. B patellar and bicepital reflex= 2/3. Hand ROM: R wrist extension is moderately limited when compared bilaterally. Unable to assess true measure due to dystonia. Ankle ROM: B ankle DF ROM is grossly 0 degrees. MMT: B LE's are grossly 4/5 throughout. FGA: 09/03- significant fall risk at this time. Recommended pt to use walker with commun ity ambulation - Balance/Special Test Scores Functional Gait Assessment Score: 7 % Disability: 76.6700 Lower Extremity Functional Score: 53 - Goals Goal 1:: Increase B LE strength x 1 grade to aid with IADL's Goal Time Frame: 4-6 Weeks Goal 2:: Increase ankle DF ROM and wrist ext ROM x 5-10 degrees to aid with decreasing pain Goal 3:: Increase FGA score x 3-5 points to aid with preventing LOB episodes in the future Goal Time Frame: 4-6 Weeks Goal 4:: I with HEP Goal Time Frame: 4-6 Weeks - Rehabilitation Potential Physical Therapy Diagnosis: Pt has LE weakness, UE and LE contractures, and unsteady gait secondary to dystonia Rehabilitation Potential: Good - Anticipated Interventions Patient/Client Instruction: Educate patient on: Condition, Plan of Care For the Purpose of:: To improve self management Therapeutic Exercise to Include: Strength training, Endurance training, Balance training, Flexibilty training, Gait and locomotor training, Dynamic Lumbar Stabilization For the Purpose of:: To decrease pain, To increase ROM, To improve muscle performance and motor function Thank you for the opportunity to evaluate your patient. For Medicare and Medicare HMO plans, please review the plan of care and approve it. It will need to be FAXED BACK to us at [phone] for Medicare purposes. For Medicare only, by signing this I certify the plan of care. Please let me know if there are questions or concerns regarding this plan of care. Physician Signature: Date:
--- NOTE | 2020-12-02 16:05 | HP.PTREVAL ---
DONNY ROSS, It has been my pleasure to treat JULIAN BLACK over the last 10 visits for Dystonia. Please see the progress note below for an update on the physical therapy plan of care! Subjective: Pt reports she continues to notice significant improvements with her balance. Pt reports her doctor was really pleased with her progress yesterday. Objective/Function: B LE MMT 4+/5 throughout. Ankle DF ROM: R= 8, L= 10 degrees. Wrist ext ROM: R= 60, L= 70 degrees. FGA: 12/04 Plan Plan: B LE strengthening and stretching, balance and prorio ex's, core strengthening, nustep, and HEP Balance/Gait/Functional tests - Balance/Special Test Scores Functional Gait Assessment Score: 10 % Disability: 66.6700 Lower Extremity Functional Score: 61 Goals Goal 1:: Increase B LE strength x 1 grade to aid with IADL's Goal Time Frame: 4-6 Weeks Goal Progress: Progressing Goal 2:: Increase ankle DF ROM and wrist ext ROM x 5-10 degrees to aid with decreasing pain Goal Progress: Goal Met Goal 3:: Increase FGA score x 3-5 points to aid with preventing LOB episodes in the future Goal Time Frame: 4-6 Weeks Goal Progress: Goal Met Goal 4:: I with HEP Goal Time Frame: 4-6 Weeks Goal Progress: Progressing Goal 5:: Increase FGA x 30 to aid with preventing future falls Goal Time Frame: 4-6 Weeks Anticipated Interventions Patient/Client Instruction: Educate patient on: Condition, Plan of Care For the Purpose of:: To improve self management Therapeutic Exercise to Include: Strength training, Endurance training, Balance training, Flexibilty training, Gait and locomotor training, Dynamic Lumbar Stabilization For the Purpose of:: To decrease pain, To increase ROM, To improve muscle performance and motor function Please do not hesitate to contact me at [phone] by phone or if you have questions or concerns regarding this new plan of care! Sincerely, Troy Saunders, PT, ATC
--- NOTE | 2020-12-23 15:55 | HP.PTREVAL ---
DONNY ROSS, It has been my pleasure to treat JULIAN BLACK over the last 16 visits for Dystonia. Please see the progress note below for an update on the physical therapy plan of care! Subjective: Pt reports she has continued to feel significant improvements since the beginning of PT Objective/Function: B LE MMT: / throughout. FGA now 02/03. Pt is able to ambulate 340' with Mod A performing FGA on this date. Pt is progressing well toward Rx goals. Plan Plan: B LE strengthening and stretching, balance and proprio ex's, core strengthening, nustep, and HEP. Consider adding cuff weight to ankles to see if it helps with gait pattern and exercises. Balance/Gait/Functional tests - Balance/Special Test Scores Functional Gait Assessment Score: 12 % Disability: 60.0000 Lower Extremity Functional Score: 61 Goals Goal 1:: Increase B LE strength x 1 grade to aid with IADL's Goal Time Frame: 4-6 Weeks Goal Progress: Goal Met Goal 2:: Increase ankle DF ROM and wrist ext ROM x 5-10 degrees to aid with decreasing pain Goal Progress: Goal Met Goal 3:: Increase FGA score x 3-5 points to aid with preventing LOB episodes in the future Goal Time Frame: 4-6 Weeks Goal Progress: Goal Met Goal 4:: I with HEP Goal Time Frame: 4-6 Weeks Goal Progress: Progressing Goal 5:: Increase FGA x /30 to aid with preventing future falls Goal Time Frame: 4-6 Weeks Goal Progress: Progressing Goal 6:: Pt will be able to ambulate with weighted vest 4# 2 laps performing FGA to improve fluidity of gait Goal Time Frame: 2-4 Weeks Goal Progress: New goal Anticipated Interventions Patient/Client Instruction: Educate patient on: Condition, Plan of Care For the Purpose of:: To improve self management Therapeutic Exercise to Include: Strength training, Endurance training, Balance training, Flexibilty training, Gait and locomotor training, Dynamic Lumbar Stabilization For the Purpose of:: To decrease pain, To increase ROM, To improve muscle performance and motor function Please do not hesitate to contact me at [phone] by phone or if you have questions or concerns regarding this new plan of care! Sincerely, Troy Saunders, PT, ATC
--- NOTE | 2021-01-27 10:25 | HP.PTREVAL_ITS ---
DONNY ROSS, It has been my pleasure to treat JULIAN BLACK over the last 24 visits for Dystonia. Please see the progress note below for an update on the physical therapy plan of care! Subjective: Pt. reports overall being 75% better. She is still having some neck pain. She is planning to have neck injections again in February. She has been having success with the weighted vest and is looking into getting a weighted sports bra to simulate this at home. Objective/Function: I trialed DN this date in her cervical spine, B UT, B erector spinae and B sub occipitals. Pt. reports no adverse reaction. I had multiple LTR mostly in R UT. She had good stability/coordination while doing activities with wt. vest on. She was walking and bouncing lacrosse ball both in one hand and with crossing midline. She does very well with correcting her loss of balance, but still has writhing movements at times. I want her working on ve ry specific movements on various surfaces. I talked to her about repetition being landry with her motor control. Plan Plan: Pt. to be seen x1 per week for 4-6 weeks. Work on cervical pain/muscle tone. Cont. with balance, but more so her coordination and accuracy of her movements. Balance/Gait/Functional tests - Balance/Special Test Scores Functional Gait Assessment Score: 10 % Disability: 66.6700 Lower Extremity Functional Score: 63 Goals Goal 1:: New goal: Pt. to ambulate 1000+ feet and maneuver obstacles with normal gait pattern and only 2-3 occurrences of writhing movements allowing for increased safety and stability. Goal Time Frame: 4-6 Weeks Goal Progress: Progressing Goal 2:: NEW goal: Pt. to have 0-2/10 pain in her cervical spine allowing for improved quality of life. Goal Time Frame: 2-4 Weeks Goal Progress: Progressing Goal 3:: Increase FGA score x 3-5 points to aid with preventing LOB episodes in the future Goal Time Frame: 4-6 Weeks Goal Progress: Goal Met Goal 4:: I with HEP Goal Time Frame: 4-6 Weeks Goal Progress: Progressing Goal 5:: Increase FGA x 13/30 to aid with preventing future falls Goal Time Frame: 4-6 Weeks Goal Progress: Progressing Goal 6:: Pt will be able to ambulate with weighted vest 4# 2 laps performing FGA to improve fluidity of gait Goal Time Frame: 2-4 Weeks Goal Progress: Goal Met Anticipated Interventions Patient/Client Instruction: Educate patient on: Condition, Plan of Care For the Purpose of:: To improve self management Therapeutic Exercise to Include: Strength training, Endurance training, Balance training, Flexibilty training, Gait and locomotor training, Dynamic Lumbar Stabilization For the Purpose of:: To decrease pain, To increase ROM, To improve muscle performance and motor function Please do not hesitate to contact me at [phone] by phone or if you have questions or concerns regarding this new plan of care! Sincerely, KALEB PiñaT
== END 2021-05-24 19:00 | disposition home or self-care (01) ==
LOC: PT 14:00
PROVIDERS: PCP Family Medicine
DX: R25.9 Unspecified abnormal involuntary movements (principal)
CPT/HCPCS: 97110; 97116; 97140; 97161; 97164

== ENCOUNTER 2021-09-12 15:00 | Outpatient (RCR) | payer BC, SELFPAY ==
--- NOTE | 2021-09-12 16:20 | HP.PTDCSUM ---
It has been my pleasure to treat JULIAN BLACK referred by LA ROSS, with the diagnosis of Dystonia for a total of 15 visit(s). Discharge Date: Please see the following information for a summary of their discharge status. Subjective: Pt reports she is very tight today R side of Cervical spine Pain Intensity (Out of 10): 4 % Improvement: 60 Objective/Function: Pt reports decreased pain post Rx. 2/10 Goal 1:: Pt. to have 0-2/10 pain in her cervical spine allowing for improved quality of life. Goal Progress: Progressing Goal 2:: Pt to have improved ROM in her cervical spine to allow her to perform Goal Progress: Progressing Goal 3:: I with HEP of c/s stretching and maintenance of cervical spine pain. Goal Progress: Goal Met Plan: This chart is discharged at this time secondary to care being changed to a new chart secondary to a new referral from a new doctor If there are questions or concerns regarding this patient's physical therapy, please feel free to call me at [phone]. Thank you for the referral of this patient. Sincerely, Troy Saunders, PT, ATC Balance/Gait/Functional tests - Balance/Special Test Scores Oswestry Neck Score: 24
== END 2021-09-12 19:00 | disposition home or self-care (01) ==
LOC: PT 15:00
PROVIDERS: PCP Family Medicine
DX: R25.9 Unspecified abnormal involuntary movements (principal); M48.02 Spinal stenosis, cervical region
CPT/HCPCS: 97140

== ENCOUNTER 2022-03-21 13:00 | Outpatient (RCR) | payer BC, SELFPAY ==
--- NOTE | 2021-09-21 13:51 | HP.PTEVAL ---
Patient's Visit Information JULIAN BLACK is a 50 year old F referred to Physical Therapy by DOMINIC SMITH with a diagnosis of spinal stenosis in neck. Date of Evaluation: 09/21/21 Physical Therapist: Troy Saunders, PT, ATC - Visit Plan Frequency: 1x/Week Duration: 2 Months Plan: C/S PROM/mobs, stretching, DTR, dry needling, postural edu, and HEP - Subjective Pt reports she has had neck pain chronically for over 20 years. Pt reports she was diagnosed with dystonia approximately 25 years ago and notes the neck pain is an effect of that. Pt reports she has been treated for this condition over the years by several different doctors. Pt reports what has helped her the most in the past has been physical therapy. Pt reports she has had DTR and dry needling in the past which has provided her with some relief. Pt denies tingling or numbness in her hands at this time, but reports she has tingling in both hands, right more than the L. Pt reports sleep difficulty at this time secondary to pain. Pt reports she used to work at the [employer], and is not able to tolerate that job secondary to the pain and cramping she experiences. Pt also notes she has had to reduce the amount of time she watches her grandchild secondary to pain. Pt reports her current neck and shoulder pain is rated at 9/10. Pt notes the pain will increase to 10/10 if she doesn't take breaks. - Pain Neck pain Pain Intensity (Out of 10): 9 Pain Intensity Range: 10 - Objective Neuro: B UE sensation is WNL to light touch. B bicipital reflex= 1/3. Palpation: Pt has significant muscle guarding throughout cervical spine and upper trap region. No obvious deformity at this time. ROM: Pt is moderately limited in all planes this date. MMT: B UE's are grossly 5/5 throughout - Balance/Special Test Scores Oswestry Neck Score: 29 - Goals Goal 1:: Decrease neck pain x 5-% to aid with sleep Goal Time Frame: 4-6 Weeks Goal 2:: Increase cervical spine ROM x 1 grade to aid with IADL's Goal Time Frame: 4-6 Weeks Goal 3:: I with HEP Goal Time Frame: 4-6 Weeks - Rehabilitation Potential Physical Therapy Diagnosis: Pt has neck pain and limited ROM secondary to spinal stenosis Rehabilitation Potential: Good - Anticipated Interventions Patient/Client Instruction: Educate patient on: Condition, Plan of Care For the Purpose of:: To improve self management Therapeutic Exercise to Include: Postural training Manual Therapy Techniques to Include: Passive ROM, Soft tissue mobilization For the Purpose of:: To decrease pain Thank you for the opportunity to evaluate your patient. For Medicare and Medicare HMO plans, please review the plan of care and approve it. It will need to be FAXED BACK to us at [phone] for Medicare purposes. For Medicare only, by signing this I certify the plan of care. Please let me know if there are questions or concerns regarding this plan of care. Physician Signature: Date:
--- NOTE | 2021-12-16 13:02 | HP.PTEVAL2_ITS ---
Patient's Visit Information JULIAN BLACK is a 51 year old F referred to Physical Therapy by DOMINIC SMITH with a diagnosis of Functional movement Disorder, functional gait disorder. Date of Evaluation: 12/07/21 Physical Therapist: ANISH Arreola - Visit Plan Frequency: 2x /Week Duration: 2 Months Plan: 2X/ week for 6 weeks for endurance, functional movements, balance, postural exercises and strength with HEP. 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 Her head always wants to pull to the right. She was on baclofen and botox and that has helped for awhile and then it got out of control and had and ITP pump placed and then had it replaced and it did not work right. The Dr kept increasing it and had an overdose in 2011. She was just recent diagnosed with functional movement disor lisha. She has been at [facility] and seeing a Dr there. Pt stood up and felt like her feet were in cement and she could not turn and she fell down. The more she tried to move the worst she got (this happened both times going from sitting to standing and then try to move). Lately her stress level has been crazy because in the last year she has had to give up a lot that she loved. She is very frustrated in general because she has tried to adapt for so long. Dystonia, FMD, R Frontal temporal seizures. Fatigue makes her movements worse. R sided neck pain and R arm pain and R foot inversion. - Pain neck pain Intensity: 8 R wrist area Intensity: 5 - Objective Objective: Gait: Walks with decreased stride length and looks down at the floor with neck shaking,. FGA: 2. Pt was given instructions on moving her limbs... Her R LE has discoordination and there is hesitation on her initiation of her movement. (tried R side stepping, BW walking,). Pt is able to sit to stand using her arms and begins to walk. Sit to stand test 17. 4 square 18.42. TUG 10.75 - Balance/Special Gait Scores Functional Gait Assessment Score: 2 % Disability: 93.3400 - Goals Goal 1:: Be able to move R and L LE on command and perform the movement correctly on command without hesitation Goal Time Frame: 6-8 Weeks Goal 2:: I HEP Goal Time Frame: 6-8 Weeks Goal 3:: Improve FGA (score of 2 at eval). Goal Time Frame: 6-8 Weeks - Rehabilitation Potential Rehabilitation Potential: Fair - Anticipated Interventions Patient/Client Instruction: Educate patient on: Condition, Plan of Care For the Purpose of:: To improve muscle performance and motor function, To improve ability to perform ADL's, To increase tolerance to activity/condition/position, To improve performance and independence with ADL's, To decrease level of supervision to perform tasks, To improve ability of physical actions for home/community/work/leisure, To improve gait and locomotor functions, To improve health of tissue, To improve endurance, To improve balance, To improve safety with gait Therapeutic Exercise to Include: Strength training, Power training, Endurance training, Balance training, Coordination, Body mechanics, Postural training, Flexibilty training, Gait and locomotor training, Neuromotor development, Active ROM For the Purpose of:: To decrease pain, To increase ROM, To improve nutrient delivery to tissue, To increase oxygenation perfusion, To improve muscle performance and motor function, To improve ability to perform ADL's, To increase tolerance to activity/condition/position, To improve performance and independence with ADL's, To decrease level of supervision to perform tasks, To improve ability of physical actions for home/community/work/leisure, To improve gait and locomotor functions, To improve health of tissue, To increase flexibility/ROM, To improve endurance, To improve balance, To improve safety wi th gait Functional Training to Include: Gait training For the Purpose of:: To improve gait and locomotor functions, To improve safety with gait Thank you for the opportunity to evaluate your patient. For Medicare and Medicare HMO plans, please review the plan of care and approve it. It will need to be FAXED BACK to us at [phone] for Medicare purposes. For Medicare only, by signing this I certify the plan of care. Please let me know if there are questions or concerns regarding this plan of care. Physician Si gnature: Date:
--- NOTE | 2022-02-01 15:37 | HP.PTDCSUM ---
It has been my pleasure to treat JULIAN BLACK referred by DOMINIC SMITH, with the diagnosis of spinal stenosis in neck for a total of 15 visit(s). Discharge Date: Please see the following information for a summary of their discharge status. Subjective: Pt reports her neck and shoulder muscles are 9/10 this date Neck pain Pain Intensity (Out of 10): 9 % Improvement: 60 Objective/Function: Neck pain is 9/10 this date. Pt reports increased ease with IADL's secondary to less pain and increased ROM at this time. Pt is I with HEP Goal 1:: Decrease neck pain x 50% to aid with sleep Goal Progress: Progressing Goal 2:: Increase cervical spine ROM x 1 grade to aid with IADL's Goal Progress: Progressing Goal 3:: I with HEP Goal Progress: Goal Met Plan: Discharge to HEP If there are questions or concerns regarding this patient's physical therapy, please feel free to call me at [phone]. Thank you for the referral of this patient. Sincerely, Troy Saunders, PT, ATC Balance/Gait/Functional tests - Balance/Special Test Scores Oswestry Neck Score: 24 Lower Extremity Functional Score: 52
--- NOTE | 2022-02-01 16:00 | HP.PTRE(2) ---
DOMINIC SMITH, It has been my pleasure to treat JULIAN BLACK over the last 6 visits for Functional movement Disorder, functional gait disorder. Please see the progress note below for an update on the physical therapy plan of care! Subjective: Pt feels that today is a rough day but she was super busy yesterday. She feels that PT has helped in knowing how to guide her movements. She s still frustrated with some things but not sure if PT can help it. Her concentration has been pretty sucky and hard to multi-task and she is so frustrated by this. With her freezing gait she feels that she can talk through it. Pt wants to do a pound class at the [facility] and going to start that class. She will be starting riding the bike again. With her legs and freezing she has been able to work her way out of it and using the tool given to get out of it. Objective/Function/Assessment: Pt had trouble with the first few movements of a particular movement and then she did the movement fine. FGA: 15. Shuffle right and left: Able on command with much smooth movements. Pt does much better with freezing moments and stuck moments when she verbally tells herself either in her head or out lout what to do to get out of the repetition. Encourage pt to work on supine neck L rotation and try and progress to sitting to not freeze up the L c-spine rotation movement. Encourage pt to ride the bike to get heart rate up there. Plan Plan: DC PT to I class and I HEP Balance/Special Test Scores - Balance/Special Test Scores Functional Gait Assessment Score: 15 % Disability: 50.0000 Goals Goal 1:: Be able to move R and L LE on command and perform the movement correctly on command without hesitation Goal Time Frame: 6-8 Weeks Goal Progress: Goal Met Goal 2:: I HEP Goal Time Frame: 6-8 Weeks Goal Progress: Goal Met Goal 3:: Improve FGA (score of 2 at eval). Goal Time Frame: 6-8 Weeks Goal Progress: Goal Met Anticipated Interventions Patient/Client Instruction: Educate patient on: Condition, Plan of Care For the Purpose of:: To improve muscle performance and motor function, To improve ability to perform ADL's, To increase tolerance to activity/condition/position, To improve performance and independence with ADL's, To decrease level of supervision to perform tasks, To improve ability of physical actions for home/community/work/leisure, To improve gait and locomotor functions, To improve health of tissue, To improve endurance, To improve balance, To improve safety with gait Therapeutic Exercise to Include: Strength training, Power training, Endurance training, Balance training, Coordination, Body mechanics, Postural training, Flexibilty training, Gait and locomotor training, Neuromotor development, Active ROM For the Purpose of:: To decrease pain, To increase ROM, To improve nutrient delivery to tissue, To increase oxygenation perfusion, To improve muscle performance and motor function, To improve ability to perform ADL's, To increase tolerance to activity/condition/position, To improve performance and independence with ADL's, To decrease level of supervision to perform tasks, To improve ability of physical actions for home/community/work/leisure, To improve gait and locomotor functions, To improve health of tissue, To increase flexibility/ROM, To improve endurance, To improve balance, To improve safety with gait Functional Training to Include: Gait training For the Purpose of:: To improve gait and locomotor functions, To improve safety with gait Please do not hesitate to contact me at [phone] by phone or if you have questions or concerns regarding this new plan of care! Sincerely, Mary Lopez MPT
== END 2022-03-21 19:00 | disposition home or self-care (01) ==
LOC: PT 13:00
PROVIDERS: PCP Family Medicine
DX: M48.02 Spinal stenosis, cervical region (principal)
CPT/HCPCS: 97110; 97140; 97161; 97162; 97164; 97530

== ENCOUNTER → 2022-06-13 | Outpatient (CLI) | payer BC, SELFPAY ==
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
== END | disposition home or self-care (01) ==
PROVIDERS: PCP Family Medicine
DX: F44.4 Conversion disorder with motor symptom or deficit (principal)
CPT/HCPCS: 74230; 92611

== ENCOUNTER 2022-07-28 09:23 | Day surgery (SDC) | payer BC, SELFPAY ==
[2022-07-28 09:38] VITALS: BP 143/96; PULSE 65; RESP 16; TEMP 36.5; O2SAT 100
[2022-07-28] MEDS: Lidocaine Jelly 2% 20 ML Syringe (URO-JET) 1 APPLIC (09:53)
== END 2022-07-28 10:08 | disposition home or self-care (01) ==
PROVIDERS: PCP Nurse Practitioner Family; Referring Provider Nurse Practitioner Family; Visit Provider Internal Medicine Gastroenterology
PROC: F00ZJWZ Instrumental Swallowing and Oral Function Assessment using Swallowing Equipment (ICD-10-PCS; CPT 43235; principal; 2022-07-28 09:20)
DX: R13.10 Dysphagia, unspecified (principal); K59.00 Constipation, unspecified
CPT/HCPCS: 91020

== ENCOUNTER 2022-08-11 14:22 | Day surgery (SDC) | payer BC, SELFPAY ==
[2022-08-11] VITALS (7 sets, daily range): BP systolic 111–146; BP diastolic 52–85; PULSE 57–68; RESP 16; TEMP 36.1–36.6; O2SAT 97–98; BMI 28.6
[2022-08-11] MEDS: Lactated Ringers 1,000 ML 15 ML IV (15:09)
--- NOTE | 2022-08-11 15:28 | HP.PCM_ITS ---
History and Physical Date of Admission: 08/11/22 JULIAN BLACK, is a 51 F who presents to the office today for PCP OV 04.05.22 with episodes of dysphagia during PO intake with intermittent LLQ abdominal pain; bowels alternate between constipation and loose stools. Notes history of gastroparesis and dysphagia. ? Biochemical 04.05.22 CBC, CMP, LFT, amylase, lipase without pertinent abnormality. ? Stool 05.04.22 Cologuard WNL. ? Barium swallow 06.13.22 mild oral and esophageal dysphagia. *BGI established 07.19.22. BM occur every 2-4 days with hard/soft BM with some bloating. Abdominal pain and N/V occur on a daily basis without identifiable trigger or alleviating factors. CBD gummies are used for management of neurologic disorders (dystonia that has progressed from cervical to general and Parkinson?s-like symptoms). Dysphagia has been present for 6 years that has been getting worse, focuses on smaller bites, extra water during intake. Choking spell x2 with difficulty breathing and feels this is the onset of her N/V and abdominal pain. Denies EGD. ROS Const Constitutional: No anorexia, fatigue, fever(s), weight change or sleep problems Eyes Eyes: No change in vision ENT ENT: No abnormal hearing, difficulty swallowing, mouth lesions, tongue swelling or throat swelling Resp Respiratory: No cough or shortness of breath Cardio Cardiology: No chest pain at rest, chest pain with exertion, shortness of breath or dyspnea on exertion Gastro GI: No difficulty swallowing Genitourinary-Female: No difficulty urinating or burning urination Musc Musculoskeletal: No joint pain, joint swelling, muscle weakness or decreased muscle mass Skin Skin: No hair loss in leg, yellowing of the eye, itchy eyes, rash, skin ulcer or skin swelling Neuro Neurology: No abnormal hearing, abnormal movements, confusion, unsteady gait/balance or memory loss Psych Psychiatric: No anxiety, No confusion and No memory loss Endo Endocrine: No fatigue or weight change Aller/Imm Allergy/Immunologic: No itchy eyes, throat swelling or tongue swelling Brown/Lymp Hematologic/Lymphatic: No easy bleeding, easy bruising or enlarged lymph nodes Exam Const General: cooperative and comfortable Nutritional Appearance: average body habitus and well nourished [facility] Head: normal to inspection Ears: hearing grossly normal bilaterally Nose: external nose normal Face and sinus: normal facial exam Mouth: oral mucosae normal Throat: posterior oropharynx normal Eyes General: appearance normal, both eyes and all related structures Neck Neck: normal visual inspection Chest Chest palpation & inspection: normal inspection of the chest and normal palpation of entire chest wall Resp Effort & Inspection: normal respiratory effort Auscultation: Bilateral: Clear to Auscultation Cardio Palpation: normal PMI Rate: regular rate Rhythm: regular rhythm GI Inspection: normal to inspection Auscultation: normal bowel sounds Percussion: normal to percussion Palpation: no hepatosplenomegaly Skin General: no rashes or lesions noted Neuro General: patient alert Extrem General: normal to inspection Psych Affect: normal affect Quality Reporting Tobacco Screening ([facility] 138) Smoking Status: Never smoker Assessment and Plan Assessment and Plan (1) Dysphagia: Status: Chronic Plan: 48-year-old female with an 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 Her initial evaluation was back in 2012 where she underwent a modified barium swallow for esophageal dysphagia. This was after she was intubated due to a baclofen overdose. Initially she thought it was from trauma. The documentation from that initial evaluation by speech pathology had determined that she did have mild oropharyngeal dysphagia. Since then she has had a TIA in diagnosed with a seizure disorder. She is being followed by neurology at [facility] and they are managing her without a baclofen pump pump. She does take baclofen orally. She is having liquid and solid food dysphagia. Her latest modified barium swallow was in June 2019 and June 2022. Both of those studies did not show mild oropharyngeal dysphagia and mild esophageal dysphagia. She has never undergone esophageal manometry or an upper endoscopy. I explained to her that the differential diagnosis would be a progressive neurologic disorder causing symptoms of esophageal dysphagia and oropharyngeal dysphagia. I am hoping that we will be able to have a mechanical issue that can be fixed endoscopically such as dilation or injection with a muscle relaxant such as Botox. However we will not know that until she undergoes an upper endoscopy and esophageal manometry. For now we will not make any medication changes until we have more information. Also noted she has not had any episodes of aspiration either by history or documentation. (2) Constipation: Status: Chronic Plan: She does have constipation but I think it is secondary to muscle relaxants that she is using on a daily basis. That is not much of a concern to her as the dysphagia is at this time. For now we will recommend osmotic laxatives and fiber supplementation on a daily basis. I have examined the patient and the H&P has been reviewed. There are no clinical changes since date of exam.
[2022-08-11] MEDS: 0.9% Normal Saline (Pres. free 10 ML Vial (15:47)
[2022-08-11] MEDS: Botulinum Toxin A 100 Units Vial IJ (15:47)
[2022-08-11] MEDS: 0.9% Saline Lock 10 ML Syringe IV (15:48)
--- NOTE | 2022-08-11 16:11 | OP.CCLET_ITS ---
08/11/2022 Bhavin Marie Re : Upper GI endoscopy procedure for Ju Wan Dear Shivani This procedure was performed on Thursday, August 11, 2022. My impressions and recommendations are as follows: Impressions : - Tortuous esophagus. - Abnormal esophageal motility, suspicious for esophageal spasm. - Normal stomach. - Normal second portion of the duodenum. - No specimens collected. Recommendations : - Discharge patient to home. - Resume previous diet. - Continue present medications. My findings are described in the full procedure note, which is enclosed. If I can be of further assistance, please feel free to contact me at . Sincerely, Jw Arthur, 08/11/2022 4:11:05 PM This report has been signed electronically.
--- NOTE | 2022-08-11 16:11 | OP.EGD_ITS ---
Patient Name: Ju Wan Procedure Date: 08/11/2022 3:25 PM Date of : 1970 Age: 51 Procedure: Upper GI endoscopy Indications: Dysphagia Providers: Jw Arthur DO Referring MD: Jw Arthur DO Medicines: Monitored Anesthesia Care Patient Profile: This is a 51 year old female. Refer to note in patient chart for documentation of history and physical. Patient has symptoms of acute chest pain and chronic dysphagia. Complications: No immediate complications. Procedure: Pre-Anesthesia Assessment: - Prior to the procedure, a History and Physical was performed, and patient medications and allergies were reviewed. The risks and benefits of the procedure and the sedation options and risks were discussed with the patient. All questions were answered and informed consent was obtained. Patient identification and proposed procedure were verified by the physician. Mental Status Examination: normal. Respiratory Examination: clear to auscultation. CV Examination: normal. Prophylactic Antibiotics: The patient does not require prophylactic antibiotics. Prior Anticoagulants: The patient has taken no previous anticoagulant or antiplatelet agents. After reviewing the risks and benefits, the patient was deemed in satisfactory condition to undergo the procedure. The anesthesia plan was to use monitored anesthesia care (MAC). Immediately prior to administration of medications, the patient was re-assessed for adequacy to receive sedatives. The heart rate, respiratory rate, oxygen saturations, blood pressure, adequacy of pulmonary ventilation, and response to care were monitored throughout the procedure. The physical status of the patient was re-assessed after the procedure. After obtaining informed consent, the endoscope was passed under direct vision. Throughout the procedure, the patient's blood pressure, pulse, and oxygen saturations were monitored continuously. The gastroscope was introduced through the mouth, and advanced to the second part of duodenum. The upper GI endoscopy was accomplished without difficulty. The patient tolerated the procedure well. Scope In: 3:44:13 PM Scope Out: 3:51:52 PM Total Procedure Duration Time 0 hours 7 minutes 39 seconds Findings: The examined esophagus was significantly tortuous. Abnormal motility was noted in the esophagus. The cricopharyngeus was abnormal. There is spasticity of the esophageal body. The distal esophagus/lower esophageal sphincter is patulous. Tertiary peristaltic waves are noted. The entire examined stomach was normal. The second portion of the duodenum was normal. Impression: - Tortuous esophagus. - Abnormal esophageal motility, suspicious for esophageal spasm. - Normal stomach. - Normal second portion of the duodenum. - No specimens collected. Recommendation: - Discharge patient to home. - Resume previous diet. - Continue present medications. Procedure Code(s): --- Professional --- 16102, Esophagogastroduodenoscopy, flexible, transoral; diagnostic, including collection of specimen(s) by brushing or washing, when performed (separate procedure) CPT copyright 2017 [employer]. All rights reserved. The codes documented in this report are preliminary and upon mineral economist review may be revised to meet current compliance requirements. Jw Arthur DO 08/11/2022 4:11:05 PM This report has been signed electronically. Number of Addenda: 0 Note Initiated On: 08/11/2022 3:25 PM
== END 2022-08-11 16:57 | disposition home or self-care (01) ==
LOC: EN 14:23 → AC 14:24
PROVIDERS: PCP Nurse Practitioner Family; Referring Provider Nurse Practitioner Family; Visit Provider Internal Medicine Gastroenterology
PROC: 0DJ08ZZ Inspection of Upper Intestinal Tract, Via Natural or Artificial Opening Endoscopic (ICD-10-PCS; CPT 43235; principal; 2022-08-11 15:25)
DX: Q39.8 Other congenital malformations of esophagus (principal); R13.10 Dysphagia, unspecified; K59.00 Constipation, unspecified; Z79.82 Long term (current) use of aspirin
CPT/HCPCS: 43235; J7120; A4216; J0585; J2405; J3490

== ENCOUNTER 2022-09-19 14:00 | Outpatient (RCR) | payer BC, SELFPAY | END 2022-09-19 19:00 | disposition home or self-care (01) | LOC: PT 14:00 | PROVIDERS: PCP Family Medicine | DX: F44.4 Conversion disorder with motor symptom or deficit (principal); R26.9 Unspecified abnormalities of gait and mobility | CPT/HCPCS: 97140 ==

== ENCOUNTER 2022-12-08 10:41 | Day surgery (SDC) | payer BC, SELFPAY ==
[2022-12-08] VITALS (7 sets, daily range): BP systolic 111–153; BP diastolic 55–63; PULSE 51–83; RESP 16–18; TEMP 36.2–36.7; O2SAT 96–100; BMI 26.2
[2022-12-08] MEDS: Lactated Ringers 1,000 ML 15 ML IV (11:13)
--- NOTE | 2022-12-08 11:34 | PCM.HP.BLA ---
History and Physical Date of Admission: 12/08/22 manometry Details: JULIAN BLACK, is a 52 F who presents to the office today for follow up. PCP OV 04.05.22 with episodes of dysphagia during PO intake with intermittent LLQ abdominal pain; bowels alternate between constipation and loose stools. Notes history of gastroparesis and dysphagia.?Biochemical 04.05.22?CBC, CMP, LFT, amylase, lipase without pertinent abnormality.?Stool 05.04.22?Cologuard WNL.?Barium swallow 06.13.22?mild oral and esophageal dysphagia.? *BGI established 07.19.22. BM occur every 2-4 days with hard/soft BM with some bloating. Abdominal pain and N/V occur on a daily basis without identifiable trigger or alleviating factors. CBD gummies are used for management of neurologic disorders (dystonia that has progressed from cervical to general and Parkinson?s-like symptoms). Dysphagia has been present for 6 years that has been getting worse, focuses on smaller bites, extra water during intake. Choking spell x2 with difficulty breathing and feels this is the onset of her N/V and abdominal pain. Denies EGD.?EGD 08.11.22?abnormal esophageal/cricopharyngeus motility with spasticity and tertiary waves. No specimens collected.? OV 11.29.22 Pt reports she felt a huge improvement in sx after botox inj. States it lasted for 6 weeks and now sx are starting to come back. Feels spasms in esophagus and stomach. Some choking episodes. Abdominal pain. BM are more constipation but has loose stools with abdominal pain. ROS Const Constitutional: Positive for fatigue, headache(s) and weight change ENT ENT: Positive for headache(s) and difficulty swallowing Cardio Cardiology: Positive for leg pain with exertion Gastro GI: Positive for abdominal pain, bloating, constipation, diarrhea, difficulty swallowing, excessive flatus and nausea/dyspepsia; No belching, change in bowel habits, change in stool character, coffee ground emesis, cramping, heartburn, feeling full early, incontinent of stools, Vomiting blood/hematemesis, Blood in stool, loose stools, Black,tarry stools, pain with swallowing, vomiting or other Musc Musculoskeletal: Positive for abnormal gait, joint pain, back pain, muscle cramps, muscle weakness, stiffness, restless legs and leg pain with exertion Skin Skin: No yellowing of the eye or itchy eyes Neuro Neurology: Positive for abnormal gait, headache(s), restless legs and tremor(s) Psych Psychiatric: No anxiety, Positive for depression and Positive for inattentiveness Endo Endocrine: Positive for fatigue and weight change Aller/Imm Allergy/Immunologic: No itchy eyes Brown/Lymp Hematologic/Lymphatic: Positive for easy bruising; No easy bleeding Exam Const General: cooperative and comfortable Nutritional Appearance: average body habitus and well nourished HENMT Head: normal to inspection Ears: hearing grossly normal bilaterally Nose: external nose normal Face and sinus: normal facial exam Mouth: oral mucosae normal Throat: posterior oropharynx normal Eyes General: appearance normal, both eyes and all related structures Neck Neck: normal visual inspection Chest Chest palpation & inspection: normal inspection of the chest and normal palpation of entire chest wall Resp Effort & Inspection: normal respiratory effort Auscultation: Bilateral: Clear to Auscultation Cardio Palpation: normal PMI Rate: regular rate Rhythm: regular rhythm GI Inspection: normal to inspection Auscultation: normal bowel sounds Percussion: normal to percussion Palpation: no hepatosplenomegaly Skin General: no rashes or lesions noted Neuro General: patient alert Extrem General: normal to inspection Psych Affect: normal affect Quality Reporting Tobacco Screening ([facility] 138) Smoking Status: Never smoker Assessment and Plan Assessment and Plan (1) Dysphagia: Status: Chronic Qualifiers: Dysphagia type: esophageal phase Qualified Code(s): R13.19 - Other dysphagia Plan: 48-year-old female with an 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 Her initial evaluation was back in 2012 where she underwent a modified barium swallow for esophageal dysphagia. This was after she was intubated due to a baclofen overdose. Initially she thought it was from trauma. The documentation from that initial evaluation by speech pathology had determined that she did have mild oropharyngeal dysphagia. Since then she has had a TIA in diagnosed with a seizure disorder. She is being followed by neurology at [facility] and they are managing her without a baclofen pump pump. She does take baclofen orally. She is having liquid and solid food dysphagia. Her latest modified barium swallow was in June 2019 and June 2022. Both of those studies did not show mild oropharyngeal dysphagia and mild esophageal dysphagia. She has never undergone esophageal manometry or an upper endoscopy. I explained to her that the differential diagnosis would be a progressive neurologic disorder causing symptoms of esophageal dysphagia and oropharyngeal dysphagia. I am hoping that we will be able to have a mechanical issue that can be fixed endoscopically such as dilation or injection with a muscle relaxant such as Botox. However we will not know that until she undergoes an upper endoscopy and esophageal manometry. For now we will not make any medication changes until we have more information. Also noted she has not had any episodes of aspiration either by history or documentation. (2) Constipation: Status: Chronic Qualifiers: Constipation type: slow transit constipation Qualified Code(s): K59.01 - Slow transit constipation Plan: She does have constipation but I think it is secondary to muscle relaxants that she is using on a daily basis. That is not much of a concern to her as the dysphagia is at this time. For now we will recommend osmotic laxatives and fiber supplementation on a daily basis. Orders: Orders EGD 12/08/22 R13.10 - Dysphagia, unspecified I have examined the patient and the H&P has been reviewed. There are no clinical changes since date of exam.
[2022-12-08] MEDS: 0.9% Normal Saline (Pres. free 10 ML Vial (12:56)
[2022-12-08] MEDS: Botulinum Toxin A 100 Units Vial IJ (12:59)
--- NOTE | 2022-12-08 13:08 | OP.EGD_ITS ---
Patient Name: Ju Wan Procedure Date: 12/08/2022 12:48 PM Date of : 1970 Age: 52 Procedure: Upper GI endoscopy Indications: Dysphagia Providers: Jw Arthur DO Medicines: Monitored Anesthesia Care Patient Profile: This is a 52 year old female. Refer to note in patient chart for documentation of history and physical. Patient has symptoms of chronic chest pain, chronic dysphagia and dysphagia with both liquids and solids. Complications: No immediate complications. Procedure: Pre-Anesthesia Assessment: - Prior to the procedure, a History and Physical was performed, and patient medications and allergies were reviewed. The patient is competent. The risks and benefits of the procedure and the sedation options and risks were discussed with the patient. All questions were answered and informed consent was obtained. Patient identification and proposed procedure were verified by the physician. Mental Status Examination: normal. Prophylactic Antibiotics: The patient does not require prophylactic antibiotics. Prior Anticoagulants: The patient has taken no anticoagulant or antiplatelet agents. After reviewing the risks and benefits, the patient was deemed in satisfactory condition to undergo the procedure. The anesthesia plan was to use monitored anesthesia care (MAC). Immediately prior to administration of medications, the patient was re-assessed for adequacy to receive sedatives. The heart rate, respiratory rate, oxygen saturations, blood pressure, adequacy of pulmonary ventilation, and response to care were monitored throughout the procedure. The physical status of the patient was re-assessed after the procedure. After obtaining informed consent, the endoscope was passed under direct vision. Throughout the procedure, the patient's blood pressure, pulse, and oxygen saturations were monitored continuously. The Endoscope was introduced through the mouth, and advanced to the second part of duodenum. The upper GI endoscopy was accomplished without difficulty. The patient tolerated the procedure well. Scope In: 12:55:18 PM Scope Out: 1:03:52 PM Total Procedure Duration Time 0 hours 8 minutes 34 seconds Findings: Abnormal motility was noted in the esophagus. The cricopharyngeus was abnormal. There is a decrease in motility of the esophageal body. The distal esophagus/lower esophageal sphincter is spastic, but gives up passage to the endoscope. Tertiary peristaltic waves are noted. Area was successfully injected with 100 units botulinum toxin. The entire examined stomach was normal. The second portion of the duodenum was normal. Impression: - Abnormal esophageal motility, suspicious for presbyesophagus. Injected with botulinum toxin. - Normal stomach. - Normal second portion of the duodenum. - No specimens collected. Recommendation: - Discharge patient to home. - Resume previous diet. - Continue present medications. Procedure Code(s): --- Professional --- 92677, Esophagogastroduodenoscopy, flexible, transoral; with directed submucosal injection(s), any substance CPT copyright 2021 [employer]. All rights reserved. The codes documented in this report are preliminary and upon asphalt machine operator review may be revised to meet current compliance requirements. Jw Arthur DO 12/08/2022 1:08:31 PM This report has been signed electronically. Number of Addenda: 0 Note Initiated On: 12/08/2022 12:48 PM
--- NOTE | 2022-12-08 13:09 | OP.CCLET_ITS ---
12/08/2022 Bhavin Marie Re : Upper GI endoscopy procedure for Ju Wan Dear Shivani This procedure was performed on Thursday, December 08, 2022. My impressions and recommendations are as follows: Impressions : - Abnormal esophageal motility, suspicious for presbyesophagus. Injected with botulinum toxin. - Normal stomach. - Normal second portion of the duodenum. - No specimens collected. Recommendations : - Discharge patient to home. - Resume previous diet. - Continue present medications. My findings are described in the full procedure note, which is enclosed. If I can be of further assistance, please feel free to contact me at . Sincerely, Jw Arthur, 12/08/2022 1:08:31 PM This report has been signed electronically.
== END 2022-12-08 14:02 | disposition home or self-care (01) ==
LOC: EN 10:42 → AC 10:44
PROVIDERS: PCP Nurse Practitioner Family; Referring Provider Nurse Practitioner Family; Visit Provider Internal Medicine Gastroenterology
PROC: 0DJ08ZZ Inspection of Upper Intestinal Tract, Via Natural or Artificial Opening Endoscopic (ICD-10-PCS; CPT 43235; principal; 2022-12-08 11:55)
DX: R13.10 Dysphagia, unspecified (principal); R19.7 Diarrhea, unspecified; K30 Functional dyspepsia; Z79.82 Long term (current) use of aspirin; K59.01 Slow transit constipation; Z86.718 Personal history of other venous thrombosis and embolism
CPT/HCPCS: 43236; J7120; A4216; J0585; J2405; J3490

== ENCOUNTER 2023-02-23 14:00 | Outpatient (RCR) | payer BC, SELFPAY ==
--- NOTE | 2022-10-03 17:11 | HP.PTREVAL ---
Re-Evaluation Intro: DOMINIC SMITH, It has been my pleasure to treat JULIAN BLACK over the last 2 visits for Neck pain. Please see the progress note below for an update on the physical therapy plan of care! Subjective Subjective: My neck is feeling a little better than it was 2 weeks ago Objective Objective/Function: Neck pain ranges from 3-9/10 Pt is still very limited with all AROM of C/S Pt is progressing with tolerance for activity with decreased neck pain Plan Plan Plan: DTR to c/s, mobs, distraction, DN Balance/Gait/Functional tests Balance/Special Test Scores Oswestry Neck Score: 26 Lower Extremity Functional Score: 20 Goals Goals Goal 1:: Decrease neck pain x 50% to aid with sleep Goal Time Frame: 6-8 Weeks Goal Progress: Progressing Goal 2:: Increase c/s ROM in all planes x 50% to aid with IADL's Goal Time Frame: 6-8 Weeks Goal Progress: Progressing Goal 3:: I with Hep Goal Time Frame: 6-8 Weeks Goal Progress: Goal Met Anticipated Interventions Re-Evaluation Ending Re-evaluation ending: Please do not hesitate to contact me at [phone] by phone or if you have questions or concerns regarding this new plan of care! Sincerely, Troy Saunders, PT, ATC
--- NOTE | 2023-02-23 15:53 | HP.PTDCSUM ---
Discharge Summary D/C summary: It has been my pleasure to treat JULIAN BLACK referred by DOMINIC SMITH, with the diagnosis of Neck pain for a total of 55 visit(s). Discharge Date: Please see the following information for a summary of their discharge status. Subjective Subjective: My neck is still sore, but my balance and gait are bothering me more. I am going to get an order for that Pain Neck pain: Pain Intensity (Out of 10): 8 Overall Improvement % Improvement: 80 Objective Objective/Function: Neck pain is 8/10. Pt notes pain was decreased by 80% with Rx, but it always returned. ROM: cervical spine ROM has improved in all planes, but is still limited by dysonic movements Pt is I with HEP Goals Goal 1:: Decrease neck pain x 50% to aid with sleep Goal Progress: Progressing Goal 2:: Increase c/s ROM in all planes x 50% to aid with IADL's Goal Progress: Progressing Goal 3:: I with Hep Goal Progress: Goal Met Plan Plan: Discharge to HEP D/C Information d/c sentence: If there are questions or concerns regarding this patient's physical therapy, please feel free to call me at [phone]. Thank you for the referral of this patient. Sincerely, Troy Saunders, PT, ATC Balance/Gait/Functional tests Balance/Special Test Scores Oswestry Neck Score: 21 Lower Extremity Functional Score: 20 Improvement % Improvement: 80
== END 2023-02-23 19:00 | disposition home or self-care (01) ==
LOC: PT 14:00
PROVIDERS: PCP Nurse Practitioner Family
DX: M48.02 Spinal stenosis, cervical region (principal)
CPT/HCPCS: 97012; 97110; 97140; 97164

== ENCOUNTER 2023-09-07 15:30 | Outpatient (RCR) | payer BC, SELFPAY ==
--- NOTE | 2023-02-28 10:38 | HP.PTEVAL_ITS ---
Patient's Visit Information Visit Information Visit Information: JULIAN BLACK is a 52 year old F referred to Physical Therapy by ARAVIND Marie with a diagnosis of Dystonia, imbalance, gait difficulty. Date of Evaluation: 02/27/23 Physical Therapist: Garcia Hutson DPT Visit Plan Frequency: 2x /Week Duration: 3 Months Plan: 1) Coordination, reciprocal movements (improve initiation, speed, and accuracy with both UE and LEs) 2) Address soft tissue restrictions in neck and R ribs/back 3) Strengthen abdominals (help overcome extensor tone) 4) Balance (reactive to address safety with falls) 5) Postural training 6) Gait (progress to open busy environments) Subjective Subjective: Pt presents to PT with new script from neurologist to address balance and gait deficits. 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 Pt reports her main concerns are posture and loss of balance, especially in a busy environment. She feels there is new sensation of a pull in her back/heels that causes her to rock backwards. She would like to address her R flexed/side bend posture in both her torso and neck. Pt is having consistently worse bouts of dizziness when turning her head or making sharp turns. This morning before the evaluation, she attempted to pace herself and not turn around as much. Pt reports pain in R ribs and R sided neck/shoulders. Pt likes to hike, walk her dog, and play with her grandkids. Her sleep quality varies, 4-5 hours some nights sometimes intermittently but has been sleeping better recently. At night she has been having more spasms in R upper arm. Pain Right Neck: Pain Intensity (Out of 10): 8 Pain Intensity Range: 5 and 8 Comment: R ribs, neck Objective Objective: ROM: pain/stretch in ribs with trunk rotation, difficulty obtaining full ROM d/t tremor, franky hamstring tightness, severe restriction in all directions cervical MMT: functional strength, difficulty with glute bridge (initiation) NEURO: dizziness with H test and eyes/neck unable to cross midline to L, severe difficulty with dysdiadochokinesia testing (toe taps and pronation/supination) unable to perform finger to nose test, absent extensor reflex to catch herself with perturbation GAIT: ataxic, unable to slow down and control gait but able to speed up, slow to pivot d/t unsteadiness, unable to perform head turns with multiple LOB STAIRS: CGA-Scott to maintain balance without UE support and reciprocal pattern, pt fatigued at top of stairs PALPATION: tightness and pain in R ant shoulder/bicep and franky neck/shoulders (R worse than L) OTHER: cervical ligament testing revealed no abnormalities, CHEMA and ATNR reflexes not present Balance/Special Test Scores Functional Gait Assessment Score: 10 % Disability: 66.6700 Lower Extremity Functional Score: 29 Goals Goal 1:: Pt will amb. 300 ft. with 2 turns Ind. with no LOB Goal Time Frame: 6-8 Weeks Goal 2:: Pt will be able to perform head turns while amb. 100ft with no sxs of dizziness Goal Time Frame: 6-8 Weeks Goal 3:: Pt will demonstrate upright posture with min to no tissue restriction in R ribs/back/neck Goal Time Frame: 6-8 Weeks Goal 4:: Pt will score 14/30 on FGA to demonstrate decreased fall risk Goal Time Frame: 6-8 Weeks Goal 5:: Pt will amb. 300 ft in open environment and navigate obstacles with <3 self-corrected LOB Goal Time Frame: 6-8 Weeks Rehabilitation Potential Physical Therapy Diagnosis: Pt presents with severe neurological impairments, including ataxic gait, tremor, and frequent spasms of back and neck musculature. Pt would benefit from PT services to address coordination, gait, balance, and limited ROM d/t decreased tissue extensibility. Rehabilitation Potential: Fair Anticipated Interventions Patient/Client Instruction: Educate patient on: Plan of Care For the Purpose of:: To decrease pain, To increase ROM, To improve muscle performance and motor function, To improve ability to perform ADL's, To increase tolerance to activity/condition/position, To improve performance and independence with ADL's, To improve ability of physical actions for home/community/work/leisure, To improve gait and locomotor functions, To decrease soft tissue restriction, To improve endurance, To improve balance, To improve safety with gait, To assume or resume ADL's, To improve safety, To improve self management, To improve ability to perform tasks related to life management and To improve tolerance to ADL's Therapeutic Exercise to Include: Strength training, Endurance training, Balance training, Coordination, Postural training, Flexibilty training, Gait and locomotor training and Neuromotor development For the Purpose of:: To decrease pain, To improve muscle performance and motor function, To improve ability to perform ADL's, To increase tolerance to activity/condition/position, To improve performance and independence with ADL's, To improve ability of physical actions for home/community/work/leisure, To improve endurance, To improve balance, To improve safety with gait, To improve health and function, To prevent re-injury, To improve ability to perform tasks related to life management and To improve tolerance to ADL's Manual Therapy Techniques to Include: Passive ROM, Functional dry needling and Soft tissue mobilization For the Purpose of:: To decrease pain, To increase ROM, To improve nutrient delivery to tissue, To increase oxygenation perfusion, To improve health of tissue, To decrease soft tissue restriction and To increase flexibility/ROM Biofeedback: Yes TENS: Yes IF ES: Yes Cryotherapy (ice pack, ice massage): Yes Thermo therapy (hot pack): Yes For the Purpose of:: To decrease pain, To increase ROM, To improve nutrient delivery to tissue, To increase oxygenation perfusion, To improve muscle performance and motor function, To improve health of tissue, To decrease soft tissue restriction, To increase flexibility/ROM and To improve tolerance to ADL's Text: Thank you for the opportunity to evaluate your patient. For Medicare and Medicare HMO plans, please review the plan of care and approve it. It will need to be FAXED BACK to us at [phone] for Medicare purposes. For Medicare only, by signing this I certify the plan of care. Please let me know if there are questions or concerns regarding this plan of care. Physician Signature: ___Date:
--- NOTE | 2023-04-20 14:56 | HP.PTREVAL ---
Re-Evaluation Intro: Geetha Parrish, OSITO-Constanza, It has been my pleasure to treat JULIAN BLACK over the last 14 visits for Dystonia, imbalance, gait difficulty. Please see the progress note below for an update on the physical therapy plan of care! Subjective Subjective: Pt reports some recent BP issues, was put on a medication Weds of this week and has high and low readings. Pt has some lightheadedness with walking back to treatment room today. Pt still noticing postural issues with low back and has the same sensation in neck, with a pulling feeling like her neck is in a vice. R side of her body feels tight and like its spasming. Pt feels coordination has improved, but postural issues and head/neck spasms are her main concern at the moment. Objective Objective/Function: Pt has greatest issue with R side of body, tightness and muscle spasms, but still has tendency to slowly lean toward L with time and prolonged walking. Trialed e-stim in neck and back, both continuous and modulated, pt felt continuous helped to turn on muscles and reduce pain while walking and modulated helped to relax upper back and neck while in supine position. Pt still had instances of freezing/LOB that SPT helped to correct with turning and with head turns, unable to turn head to L d/t pain and neck tightness. Dizziness and nausea still affecting pts ability to perform full head turns and maintain balance, also must consider BP involvement. In next visits, focus on core strengthening and and postural ex in tandem with e-stim to address discomfort with unsupported ex. Plan Plan Plan: Work on core (lat pull down for home), changing direction, and dual tasking 1) Continue exploring options with proprioceptive input, UE and LE POSTURAL EXERCISES 2) Static and dynamic balance, attempting to correct backwards LOB tendencies 3) Introduce quadruped with cervical ROM need to work on balance Balance/Gait/Functional tests Balance/Special Test Scores Functional Gait Assessment Score: 10 % Disability: 66.6700 Lower Extremity Functional Score: 58 Goals Goals Goal 1:: Pt will amb. 300 ft. with 2 turns Ind. with no LOB Goal Time Frame: 6-8 Weeks Goal Progress: Progressing Goal 2:: Pt will be able to perform head turns while amb. 100ft with no sxs of dizziness Goal Time Frame: 6-8 Weeks Goal Progress: Progressing Goal 3:: Pt will demonstrate upright posture with min to no tissue restriction in R ribs/back/neck Goal Time Frame: 6-8 Weeks Goal Progress: Progressing Goal 4:: Pt will score 14/30 on FGA to demonstrate decreased fall risk Goal Time Frame: 6-8 Weeks Goal Progress: Progressing Goal 5:: Pt will be able to tolerate entire PT session with <5/10 back pain and min to no feelings of pulling Goal Time Frame: 6-8 Weeks Goal Progress: Progressing Anticipated Interventions Anticipated Interventions Patient/Client Instruction: Educate patient on: Plan of Care For the Purpose of:: To decrease pain, To increase ROM, To improve muscle performance and motor function, To improve ability to perform ADL's, To increase tolerance to activity/condition/position, To improve performance and independence with ADL's, To improve ability of physical actions for home/community/work/leisure, To improve gait and locomotor functions, To decrease soft tissue restriction, To improve endurance, To improve balance, To improve safety with gait, To assume or resume ADL's, To improve safety, To improve self management, To improve ability to perform tasks related to life management and To improve tolerance to ADL's Therapeutic Exercise to Include: Strength training, Endurance training, Balance training, Coordination, Postural training, Flexibilty training, Gait and locomotor training and Neuromotor development For the Purpose of:: To decrease pain, To improve muscle performance and motor function, To improve ability to perform ADL's, To increase tolerance to activity/condition/position, To improve performance and independence with ADL's, To improve ability of physical actions for home/community/work/leisure, To improve endurance, To improve balance, To improve safety with gait, To improve health and function, To prevent re-injury, To improve ability to perform tasks related to life management and To improve tolerance to ADL's Manual Therapy Techniques to Include: Passive ROM, Functional dry needling and Soft tissue mobilization For the Purpose of:: To decrease pain, To increase ROM, To improve nutrient delivery to tissue, To increase oxygenation perfusion, To improve health of tissue, To decrease soft tissue restriction and To increase flexibility/ROM Biofeedback: Yes TENS: Yes IF ES: Yes Cryotherapy (ice pack, ice massage): Yes Thermo therapy (hot pack): Yes For the Purpose of:: To decrease pain, To increase ROM, To improve nutrient delivery to tissue, To increase oxygenation perfusion, To improve muscle performance and motor function, To improve health of tissue, To decrease soft tissue restriction, To increase flexibility/ROM and To improve tolerance to ADL's Re-Evaluation Ending Re-evaluation ending: Please do not hesitate to contact me at [phone] by phone or if you have questions or concerns regarding this new plan of care! Sincerely, KALEB PiñaT
== END 2023-09-07 19:00 | disposition home or self-care (01) ==
LOC: PT 15:30
PROVIDERS: PCP Nurse Practitioner Family; Visit Provider Nurse Practitioner Family
DX: R26.89 Other abnormalities of gait and mobility (principal); G25.9 Extrapyramidal and movement disorder, unspecified
CPT/HCPCS: 97110; 97140; 97163; 97530

== ENCOUNTER 2023-10-23 12:45 | Day surgery (SDC) | payer BC, SELFPAY ==
[2023-10-23] VITALS (9 sets, daily range): BP systolic 79–150; BP diastolic 53–73; PULSE 55–65; RESP 16–18; TEMP 36.1–36.6; O2SAT 98–100; BMI 25.3
[2023-10-23] MEDS: Lactated Ringers 1,000 ML 15 ML IV (13:19)
--- NOTE | 2023-10-23 13:41 | PRE.ANES_ITS ---
ASA Classification* ASA Classification ASA Classification: 3 Assessment & Plan Anesthesia* Anesthesia Assessment Anesthesia Assessment: Discussed sedation and/or anesthesia options, risks, benefits, and alternatives with patient/parents/legal guardian/POA. Questions invited. The patient/parents/legal guardian/POA seems to understand and agrees to proceed with anesthesia plan. Reviewed the physical assessment, medical history, allergy history and patient home medications list prior to surgery/procedure/anesthetic and documented any changes. Performed airway and anesthesia risk assessments. Anesthesia Type Anesthesia Type: MAC History Source History Obtained from:: Patient and Chart Anesthesia Focused Assessment* Temperature: 98 F Pulse Rate: 61 Blood Pressure: 150/73 Respiratory Rate: 18 Pulse Ox: 100 Oxygen Delivery Method: Room Air Airway Assessment Mouth opens: 2 cm Mallampati Score: III Teeth Condition: Caps/Crowns (Left bottom molar has a crown. It is tight.) Neck Range of motion (ROM): Limited ROM Focused Labs Anesthesia Preop lab: CBC WBC 8.5 K/mm3 (4.4-11.0) 11/04/17 19:20 RBC 4.99 M/mm3 (4.2-5.4) 11/04/17 19:20 Hgb 13.2 g/dl (12.0-15.0) 11/04/17 19:20 Hct 39.7 % (37-47) 11/04/17 19:20 Plt Count 313 K/mm3 (150-450) 11/04/17 19:20 CHEMISTRY Potassium 4.0 mmol/L (3.5-5.1) 11/04/17 19:20 Sodium 135 mmol/L (136-145) L 11/04/17 19:20 Magnesium 2.1 mg/dL (1.6-2.6) 11/04/17 19:20 BUN 13 mg/dL (7-18) 11/04/17 19:20 Creatinine 0.78 mg/dL (0.55-1.02) 11/04/17 19:20 Glucose 94 mg/dL (74-106) 11/04/17 19:20 TSH 2.08 uIU/mL (0.358-3.74) 11/04/17 19:20 COAG PT 13.2 SECONDS (11.7-14.9) 11/04/17 19:20 Pre-Assessment Diagnosis/Proposed Procedure Planned Operative Procedure(s): EGD Anesthesia History Anesthesia History - air transport professionals: Anesthesia History - air transport professionals Hx Hospitalization No 10/03/23 15:37 Any Problems With Anesthesia No 10/03/23 15:37 Cholinesterase deficiency No 10/03/23 15:37 You/Your Family Experience No 10/03/23 15:37 fever (hyperthermia) with Relationship Recent Exposure to Contagious No 10/23/23 13:20 Disease Does patient have nerve No 10/03/23 15:37 stimulator Patient instructed to have device shut off --Does patient have Pacemaker No 10/23/23 13:20 or ICD? When Was Last Pacemaker Check QUESTION #4 FULL TEXT: You/Your Family Experience fever (hyperthermia) with Anesthesia Last Oral Intake Last Oral intake: Last Oral Intake NPO since 07:30 10/23/23 13:20 Meds taken in AM with sips of Yes 10/23/23 13:20 water? Meds patient instructed to lisinopril, lacosamide 10/23/23 13:20 take am of surgery PONV PONV - air transport professionals: PONV - air transport professionals Female Yes 10/03/23 15:37 HX of Motion Sickness Yes 10/03/23 15:37 HX of N/V After Surgery Yes 10/03/23 15:37 Non-Smoker Yes 10/03/23 15:37 Duration of Surgery greater No 10/03/23 15:37 than 60 minutes Number of Risk Factors 4 10/03/23 15:37 PONV Score Severe Risk 10/03/23 15:37 Height & Weight Height & Weight: Anesthesia: Height & Weight Height 5 ft 2 in 10/23/23 13:20 Weight: 62.8 kg 10/23/23 13:20 Body Mass Index (BMI) 25.3 10/23/23 13:20 Respiratory Assessment Respiratory Assessment - air transport professionals: Respiratory Tract Infection Hx - air transport professionals Hx Respiratory Tract Infection No 10/03/23 15:37 STOP Sleep Apnea STOP Sleep Apnea - air transport professionals: STOP Sleep Apnea - air transport professionals Hx Hypertension Yes: LISINOPRIL 10/03/23 15:37 Hx Sleep Apnea No 10/03/23 15:37 CPAP BIPAP Do you snore loudly (louder No 10/03/23 15:37 than talking or can be heard Do you often feel tired/ No 10/03/23 15:37 fatigued/ sleepy during daytime? Has anyone observed you stop No 10/03/23 15:37 breathing during sleep? STOP Results Negative 10/03/23 15:37 QUESTION #5 FULL TEXT : Do you snore loudly (louder than talking or can be heard through closed doors)? Tobacco Use History Tobacco Use History - air transport professionals: Tobacco Use History - air transport professionals Tobacco Use Smoking Status Never smoker 10/03/23 15:37 Hx Tobacco Use No 10/03/23 15:37 Years Smoking Packs Smoked per Day Smoking Cessation Date was within the last 15 years Hx Smoking Cessation Date Hx Smoking Cessation No 10/03/23 15:37 Counseling Hematologic Medial History Hematologic Hx - air transport professionals: Hematologic Medical Hx - market developer Hx of Blood Transfusion No 10/03/23 15:37 Hx of Transfusion in last 3 No 10/03/23 15:37 Months Date of Last Transfusion (if within last 3 months) Ever experience any problems No 10/03/23 15:37 with transfusion(s)? Specify any problems Hx of Preganancy in last 3 No 10/03/23 15:37 Months Nurse Filling Out Transfusion VLEHMAN 10/03/23 15:37 & Questions: Date: 10/03/23 10/03/23 15:37 Time: 15:41 10/03/23 15:37 Patient unable to answer at this time (ie. confused, unrespo /Reproduction History /Reproductive History - air transport professionals: /Reproductive Hx- air transport professionals Hx Now Gestational Age (in weeks): EDC: Hx Hx Para Hx Section SAB Active Medications Active Medications: Current Medications Generic Name Dose Route Start Last Admin Trade Name Freq PRN Reason Stop Dose Admin Lactated Ringer's 1,000 mls @ 15 mls/hr 10/23/23 13:00 10/23/23 13:19 IV 15 mls/hr .Q48H MERY Administration PFSH Medical History (Updated 10/03/23 @ 15:40 by Kristen Diaz) Syncope Esophageal motility disorder Wears glasses Depression Alcohol use Arthritis Anemia DVT (deep venous thrombosis) Easy bruising Excessive bleeding Back pain Migraine headache Injury of head and neck Seizures Difficulty chewing History of IBS Non-smoker Hoarseness History of pain when walking History of echocardiogram Chest pain Kyphoscoliosis Dystonia Cognitive decline CTS (carpal tunnel syndrome) Abdominal pain Home Medications ?Medication ?Instructions ?Recorded ?Last Taken ?Type Ibuprofen [Motrin] 800 mg PO TID PRN PRN Pain #21 tabs 11/14/14 Unknown Rx aspirin 81 mg chewable tablet 81 mg PO DAILY@0800 08/26/19 10/22/23 History lacosamide 100 mg tablet 200 mg PO TID 08/26/19 10/23/23 History ondansetron 4 mg disintegrating 4 mg PO Q8H PRN PRN Nausea 08/26/19 Unknown History tablet oxybutynin chloride 5 mg tablet 5 mg PO DAILY 08/26/19 Unknown History cholecalciferol (vitamin D3) 50 50 mcg PO DAILY 05/15/22 Unknown History mcg (2,000 unit) capsule ferrous sulfate 325 mg (65 mg 325 mg PO DAILY 05/15/22 Unknown History iron) tablet baclofen 10 mg tablet 10 mg PO TID 08/09/22 12/08/22 History riboflavin (vitamin B2) 100 mg 200 mg PO BID 08/09/22 Unknown History tablet (Vitamin B-2) lisinopril 10 mg tablet 10 mg PO DAILY High Blood Pressure 10/03/23 10/23/23 History Allergy/AdvReac Type Severity Reaction Status Date / Time Sulfa (Sulfonamide Allergy Unknown Verified 10/23/23 13:16 Antibiotics) Family History Father Diabetes Surgical History History of esophagogastroduodenoscopy (EGD) Hx of surgical procedure History of carpal tunnel release of both wrists Status post repair of nerve Social History Smoking Status: Never smoker alcohol intake: current Review of Systems (Anesthesia) ROS Narrative System reviewed and no additional complaints, except as documented.
--- NOTE | 2023-10-23 14:08 | PCM.HP.BLA ---
History and Physical Date of Admission: 10/23/23 [facility] Complaint: dysphagia, Details: JULIAN BLACK, is a 52 F who presents to the office today for PCP OV 3.02.27 with episodes of dysphagia during PO intake with intermittent LLQ abdominal pain; bowels alternate between constipation and loose stools. Notes history of gastroparesis and dysphagia.?Biochemical .02.27?CBC, CMP, LFT, amylase, lipase without pertinent abnormality.?Stool 05.04.22?Cologuard WNL.?Barium swallow 06.13.22?mild oral and esophageal dysphagia.? *BGI established 07.19.22. BM occur every 2-4 days with hard/soft BM with some bloating. Abdominal pain and N/V occur on a daily basis without identifiable trigger or alleviating factors. CBD gummies are used for management of neurologic disorders (dystonia that has progressed from cervical to general and Parkinson?s-like symptoms). Dysphagia has been present for 6 years that has been getting worse, focuses on smaller bites, extra water during intake. Choking spell x2 with difficulty breathing and feels this is the onset of her N/V and abdominal pain. Denies EGD.?EGD .08.27?abnormal esophageal/cricopharyngeus motility with spasticity and tertiary waves. No specimens collected.? OV 10. Pt reports she felt a huge improvement in sx after botox inj. States it lasted for 6 weeks and now sx are starting to come back. Feels spasms in esophagus and stomach. Some choking episodes. Abdominal pain. BM are more constipation but has loose stools with abdominal pain. OV 4..24 Pt reports that her last botox inj was very helpful and alleviated her symptoms. Pt states the symptoms began to return around Easter of this year. Pt is having difficulty swallowing and is having abdominal pain, cramping, and bloating when she eats soild/heavy food. Patient states she has a loose bm every few days. Pt continues on Baclofen. Pt received an email from her insurance this morning, but did not have the password to get in, so she is unsure if they will cover the botox. OV 8.15.24 Patient reports that she has not been doing well. Her symptoms and dystonia is getting much worse. She is having episodes of choking and gagging very often. She has been eating just one meal per day and nutritional shakes throughout the day. On occasion she will have to physically remove food from her throat with her hand. When she is eating solid food she will eat small amounts and have water close by. She has been having autonomic symptoms with her blood pressure and is now seeing cardiology for this. She would really like to get more botox as this has been of most benefit to her. She gets botox injections all over her body for her dystonia. She also tells me she has been having episodes of sob that wake her up at night. She has chest pain relating to her esophagus. ROS Const Constitutional: Positive for fatigue, weakness and weight change (weight loss); No fever(s) ENT ENT: Positive for difficulty swallowing Gastro GI: Positive for abdominal pain, bloating, change in bowel habits, constipation, diarrhea, difficulty swallowing, excessive flatus and nausea/dyspepsia; No belching, change in stool character, coffee ground emesis, cramping, heartburn, feeling full early, incontinent of stools, Vomiting blood/hematemesis, Blood in stool, loose stools, Black,tarry stools, pain with swallowing, vomiting or other Musc Musculoskeletal: Positive for abnormal gait, joint pain, back pain, muscle cramps, muscle weakness, stiffness, Arthritis and restless legs Skin Skin: Positive for dry skin and itchy eyes; No yellowing of the eye Neuro Neurology: Positive for abnormal gait, weakness, restless legs and tremor(s) Psych Psychiatric: Positive for anxiety, Positive for depression and Positive for inattentiveness Endo Endocrine: Positive for fatigue and weight change (weight loss) Aller/Imm Allergy/Immunologic: Positive for itchy eyes Brown/Lymp Hematologic/Lymphatic: Positive for easy bruising; No easy bleeding Exam Const General: cooperative and comfortable Nutritional Appearance: average body habitus and well nourished HENMT Head: normal to inspection Ears: hearing grossly normal bilaterally Nose: external nose normal Face and sinus: normal facial exam Eyes General: appearance normal, both eyes and all related structures Neck Neck: normal visual inspection Chest Chest palpation & inspection: normal inspection of the chest Resp Effort & Inspection: normal respiratory effort and able to speak in complete sentences Cardio Palpation: normal PMI GI Inspection: normal to inspection Palpation: no hepatosplenomegaly Skin General: no rashes or lesions noted Neuro General: patient alert Extrem General: normal to inspection Psych Affect: normal affect Assessment and Plan Assessment and Plan (1) Dysphagia: Status: Chronic Qualifiers: Dysphagia type: esophageal phase Qualified Code(s): R13.19 - Other dysphagia (2) Cervical dystonia: Status: Acute Plan: Patient is here today for f/u. She has dystonia which causes esophageal pain and dysphagia. She has had botox injections during EGD which has been very helpful to her symptoms. Since her last injection her symptoms have been progressively getting worse. -Will order EGD with botox as this was most helpful treatment for her in the past -She is currently on baclofen for dystonia -Will consider other medications in the future if her symptoms are refractory I have examined the patient and the H&P has been reviewed. There are no clinical changes since date of exam.
[2023-10-23] MEDS: 0.9% Normal Saline (Pres. free 10 ML Vial (14:16)
[2023-10-23] MEDS: Botulinum Toxin A 100 Units Vial IJ (14:16)
--- NOTE | 2023-10-23 14:25 | OP.CCLET_ITS ---
10/23/2023 Bhavin Marie Re : Upper GI endoscopy procedure for Ju Wan Dear Shivani This procedure was performed on Monday, October 23, 2023. My impressions and recommendations are as follows: Impressions : - Abnormal esophageal motility, established achalasia. Injected with botulinum toxin. - Normal stomach. - Normal second portion of the duodenum. - No specimens collected. Recommendations : - Discharge patient to home. - Resume previous diet. - Continue present medications. My findings are described in the full procedure note, which is enclosed. If I can be of further assistance, please feel free to contact me at . Sincerely, Jw Arthur, 10/23/2023 2:25:15 PM This report has been signed electronically.
--- NOTE | 2023-10-23 14:25 | OP.EGD_ITS ---
Patient Name: Ju Wan Procedure Date: 10/23/2023 1:59 PM Date of : 1970 Age: 52 Procedure: Upper GI endoscopy Indications: Dysphagia, Achalasia Providers: Jw Arthur DO Medicines: Monitored Anesthesia Care Patient Profile: This is a 52 year old female. Refer to note in patient chart for documentation of history and physical. Patient has symptoms of dysphagia with both liquids and solids. Her most recent esophageal GUZMAN pH capsule and high resolution esophageal manometry was within the past six months. Complications: No immediate complications. Procedure: Pre-Anesthesia Assessment: - Prior to the procedure, a History and Physical was performed, and patient medications and allergies were reviewed. The patient is competent. The risks and benefits of the procedure and the sedation options and risks were discussed with the patient. All questions were answered and informed consent was obtained. Patient identification and proposed procedure were verified by the physician in the pre-procedure area. Mental Status Examination: alert and oriented. Airway Examination: normal oropharyngeal airway and neck mobility. Respiratory Examination: clear to auscultation. CV Examination: normal. Prophylactic Antibiotics: The patient does not require prophylactic antibiotics. Prior Anticoagulants: The patient has taken no anticoagulant or antiplatelet agents. ASA Grade Assessment: II - A patient with mild systemic disease. After reviewing the risks and benefits, the patient was deemed in satisfactory condition to undergo the procedure. The anesthesia plan was to use monitored anesthesia care (MAC). Immediately prior to administration of medications, the patient was re-assessed for adequacy to receive sedatives. The heart rate, respiratory rate, oxygen saturations, blood pressure, adequacy of pulmonary ventilation, and response to care were monitored throughout the procedure. The physical status of the patient was re-assessed after the procedure. After obtaining informed consent, the endoscope was passed under direct vision. Throughout the procedure, the patient's blood pressure, pulse, and oxygen saturations were monitored continuously. The gastroscope was introduced through the mouth, and advanced to the second part of duodenum. The upper GI endoscopy was accomplished without difficulty. The patient tolerated the procedure well. Scope In: 2:14:58 PM Scope Out: 2:21:31 PM Total Procedure Duration Time 0 hours 6 minutes 33 seconds Findings: Abnormal motility was noted in the esophagus. The cricopharyngeus was normal. There are extra peristaltic waves in the esophageal body. The distal esophagus/lower esophageal sphincter is spastic, but gives up passage to the endoscope. Tertiary peristaltic waves are noted. Area was successfully injected with 100 units botulinum toxin. The entire examined stomach was normal. The second portion of the duodenum was normal. Impression: - Abnormal esophageal motility, established achalasia. Injected with botulinum toxin. - Normal stomach. - Normal second portion of the duodenum. - No specimens collected. Recommendation: - Discharge patient to home. - Resume previous diet. - Continue present medications. Procedure Code(s): --- Professional --- 91645, Esophagogastroduodenoscopy, flexible, transoral; with directed submucosal injection(s), any substance CPT copyright 2021 [employer]. All rights reserved. The codes documented in this report are preliminary and upon uppers edge burnisher review may be revised to meet current compliance requirements. Jw Arthur DO 10/23/2023 2:25:15 PM This report has been signed electronically. Number of Addenda: 0 Note Initiated On: 10/23/2023 1:59 PM
--- NOTE | 2023-10-23 14:30 | PCM.POST.ANE ---
Anesthesia: Postop Eval I Current Vital Signs Temperature: 97.1 F Pulse Rate: 62 Blood Pressure: 107/53 Respiratory Rate: 16 Pulse Ox: 100 Oxygen Delivery Method: Room Air Assessment Airway patent: Yes Spontaneous unlabored respirations: Yes Mental status: Asleep nausea: No Vomiting: No Anesthesia Complication: No Fluid Hydration Crystalloid volume administer (ml): 600 Total IV fluid infused: 600 Progress Note Anesthesia document: Postop Eval 1 completed: Yes
--- NOTE | 2023-10-23 17:39 | PCM.POSTANE2 ---
Anesthesia Postop Eval I Sum Postop Eval Completion status Anesthesia document: Postop Eval 1 completed: Yes Anesthesia Postop Eval I Summary Anesthesia Postop Eval I Summary: Anesthesia Postop Eval I: Assessment Summary Airway patent Yes 10/23/23 14:30 [email or web address] Spontaneous unlabored Yes 10/23/23 14:30 [email or web address] respirations Mental status Asleep 10/23/23 14:30 [email or web address] nausea No 10/23/23 14:30 [email or web address] Vomiting No 10/23/23 14:30 [email or web address] Anesthesia Postop Eval I: Fluid Summary Crystalloid volume administer 600 10/23/23 14:30 [email or web address] (ml) Colloids volume administered ( ml) Blood Product volume administered (ml) Total IV fluid infused 600 10/23/23 14:30 [email or web address] Anesthesia Postop Eval I: Summary Notes Anesthesia Complication No 10/23/23 14:30 [email or web address] Anesthesia Complication Comment: Post-operative progress note Anesthesia: Postop Eval II Evaluation Mental status: Awake and Calm Pain Level: 0 nausea: No Vomiting: No Complications Anesthesia Complication: No
== END 2023-10-23 16:27 | disposition home or self-care (01) ==
LOC: EN 12:47 → AC 12:48
PROVIDERS: PCP Nurse Practitioner Family; Referring Provider Internal Medicine Gastroenterology; Visit Provider Internal Medicine Gastroenterology
PROC: 0DJ08ZZ Inspection of Upper Intestinal Tract, Via Natural or Artificial Opening Endoscopic (ICD-10-PCS; CPT 43235; principal; 2023-10-23 13:40)
DX: K22.0 Achalasia of cardia (principal); R13.10 Dysphagia, unspecified; G24.3 Spasmodic torticollis; I10 Essential (primary) hypertension; Z79.82 Long term (current) use of aspirin; Z79.899 Other long term (current) drug therapy; Z86.718 Personal history of other venous thrombosis and embolism
CPT/HCPCS: 43236; J7120; A4216; J0585; J2405; J3490

== ENCOUNTER 2024-02-12 13:00 | Outpatient (RCR) | payer BC, SELFPAY | END 2024-02-12 19:00 | disposition home or self-care (01) | LOC: PT 13:00 | PROVIDERS: PCP Nurse Practitioner Family; Referring Provider Nurse Practitioner Family; Visit Provider Nurse Practitioner Family | DX: R26.89 Other abnormalities of gait and mobility (principal); G25.9 Extrapyramidal and movement disorder, unspecified; M54.2 Cervicalgia | CPT/HCPCS: 97110; 97140 ==

== ENCOUNTER → 2024-07-01 | Outpatient (CLI) | payer BC, SELFPAY ==
--- NOTE | 2024-07-01 12:35 | MRI_ITS ---
PROCEDURE: UPPER EXT JOINT ONLY(ROUTINE) 07/01/2024 REASON FOR EXAM: PAIN, ASSESS FOR CUFF TEAR TECHNIQUE: MRI of the right shoulder. T1, T2, PD, multiplanar and multisequence images were obtained without IV contrast administration. COMPARISON: COMPARISON : None FINDINGS: Rotator cuff: There is no muscular atrophy. There is moderate distal supraspinatus and infraspinatus tendinopathy without full-thickness tear or retraction. The subscapularis and teres minor appear intact. AC joint: There is mild AC joint hypertrophy without evidence of separation. There is a small AC joint effusion. There is a type 3 acromion with impingement configuration. Bone Marrow: Unremarkable Effusion: There is no significant joint effusion. There is fluid in the subacromial subdeltoid bursa with bursitis. There is thickening and edema in the inferior glenohumeral ligament, which can indicate adhesive capsulitis. Labrum: There is no visible labral tear. Biceps tendon: The biceps tendon is present within the biceps tendon groove, with intact anchors. MRI/Upper Ext Joint Only(Routine) IMPRESSION: There is moderate distal supraspinatus and infraspinatus tendinopathy without f ull-thickness tear or retraction. There is mild AC joint hypertrophy without evidence of separation. There is a small AC joint effusion. There is a type 3 acromion with impingement configuration. There is fluid in the subacromial subdeltoid bursa with bursitis. There is thickening and edema in the inferior glenohumeral ligament, which can indicate adhesive capsulitis. Reading Location: [facility]
== END | disposition home or self-care (01) ==
LOC: OPMRI 12:23
PROVIDERS: PCP Nurse Practitioner Family; Referring Provider Orthopaedic Surgery Sports Medicine; Visit Provider Orthopaedic Surgery Sports Medicine
DX: M25.511 Pain in right shoulder (principal)
CPT/HCPCS: 73221

== ENCOUNTER 2024-09-30 13:30 | Outpatient (RCR) | payer BC, SELFPAY ==
--- NOTE | 2024-07-14 16:56 | HP.PTEVAL_ITS ---
Patient's Visit Information Visit Information Visit Information: JULIAN BLACK is a 53 year old F referred to Physical Therapy by Dr. Sandro Martinez MD with a diagnosis of R shoulder impingement syndrome. Date of Evaluation: 07/14/24 Physical Therapist: Troy Saunders, PT, ATC Visit Plan Frequency: 2x /Week Duration: 4-6 Weeks Plan: R shoulder rotator cuff strengthening, AROM ex's, scap stab ex's, UBE, and HEP Subjective Subjective: Pt reports her R shoulder has been sore for a while, but notes the pain has progressively worsened over the past 6 months. Pt notes she is R hand dominant. Pt reports her pain had an insidious onset in nature. Pt reports her R shoulder pain awakens her at night. Pt denies any tingling or numbness in R UE. Pt describes her pain as burning. Pt reports she has generalized pain on the anterior and posterior regions of her R shoulder. Pt reports she has been taking tylenol and dons a pain patch to aid with her R shoulder pain. Pt reports she would like to be able to exercise, but her pain is too great at this time. Pt reports she is unable to lift arm overhead or reach out to her side at this time secondary to intense pain in her R shoulder. Pt reports she did have an xray which revealed that she has a spur in the R shoulder. Pt also had an MRI which revealed no tears in her R shoulder tendons. R shoulder pain is 8/10 at rest, 10/10 at worst Pain R shoulder: Pain Intensity (Out of 10): 8 Pain Intensity Range: 10 Objective Objective: Neuro: B UE sensation is WNL to light touch Palpation: Pt is very tender throughout the distribution of supraspinatus. No obvious deformity present. ROM: L shoulder flex= 140, abd= 150, IR= WNL, ER= 50 degrees; R shoulder flex= 85, abd= 60, IR= moderately limited to belt line, ER= 10 degrees MMT: L shoulder flex= 12, abd= 18, IR= 13, ER= 13 #F; R shoulder flex= 5, abd= 0, IR= 16, ER= 7 #F Special test: Pt too sore today Balance/Special Test Scores Quick DASH Score: 54.5450 Goals Goal 1:: Decrease R shoulder pain x 50% to aid with sleep Goal Time Frame: 4-6 Weeks Goal 2:: Increase R shoulder flex and abduction ROM x 30 degrees to aid with overhead lifting Goal Time Frame: 4-6 Weeks Goal 3:: Increase R shoulder strength to equal 90 percent of L shoulder strength to aid with IADL's Goal Time Frame: 4-6 Weeks Goal 4:: I with HEP Goal Time Frame: 4-6 Weeks Rehabilitation Potential Physical Therapy Diagnosis: Pt has R shoulder pain, weakness, and limited ROM secondary to R shoulder impingement syndrome Rehabilitation Potential: Good Anticipated Interventions Patient/Client Instruction: Educate patient on: Condition and Plan of Care For the Purpose of:: To improve self management Therapeutic Exercise to Include: Strength training, Endurance training, Body mechanics, Flexibilty training, Active ROM and Scapular Strength/Stabilization For the Purpose of:: To decrease pain, To increase ROM and To improve muscle performance and motor function Cryotherapy (ice pack, ice massage): Yes For the Purpose of:: To decrease pain Text: Thank you for the opportunity to evaluate your patient. For Medicare and Medicare HMO plans, please review the plan of care and approve it. It will need to be FAXED BACK to us at [phone] for Medicare purposes. For Medicare only, by signing this I certify the plan of care. Please let me know if there are questions or concerns regarding this plan of care. Physician Signature:__ Date:
--- NOTE | 2024-08-22 15:11 | HP.PTREVAL ---
Re-Evaluation Intro: Dr. Sandro Martinez MD, It has been my pleasure to treat JULIAN BLACK over the last 9 visits for R shoulder impingement syndrome. Please see the progress note below for an update on the physical therapy plan of care! Subjective Subjective: Pt reports the pain is getting better, and ROM is improving Objective Objective/Function: R shoulder pain ranges from 5-7/10 R shoulder ROM: flex= 100, abd= 85 degrees R shoulder MMT: flex= 7, abd= 20, IR= 10, ER= 16 #F Pt is showing excellent progress this time Plan Plan Plan: Cont to progress at this time Balance/Gait/Functional tests Balance/Special Test Scores Quick DASH Score: 38.6350 Goals Goals Goal 1:: Decrease R shoulder pain x 50% to aid with sleep Goal Time Frame: 4-6 Weeks Goal Progress: Progressing Goal 2:: Increase R shoulder flex and abduction ROM x 30 degrees to aid with overhead lifting Goal Time Frame: 4-6 Weeks Goal 3:: Increase R shoulder strength to equal 90 percent of L shoulder strength to aid with IADL's Goal Time Frame: 4-6 Weeks Goal 4:: I with HEP Goal Time Frame: 4-6 Weeks Anticipated Interventions Anticipated Interventions Patient/Client Instruction: Educate patient on: Condition and Plan of Care For the Purpose of:: To improve self management Therapeutic Exercise to Include: Strength training, Endurance training, Body mechanics, Flexibilty training, Active ROM and Scapular Strength/Stabilization For the Purpose of:: To decrease pain, To increase ROM and To improve muscle performance and motor function Cryotherapy (ice pack, ice massage): Yes For the Purpose of:: To decrease pain Re-Evaluation Ending Re-evaluation ending: Please do not hesitate to contact me at [phone] by phone or if you have questions or concerns regarding this new plan of care! Sincerely, Troy Saunders, PT, ATC
--- NOTE | 2024-09-30 14:52 | HP.PTDCSUM ---
Discharge Summary D/C summary: It has been my pleasure to treat JULIAN BLACK referred by Dr. Sandro Martinez MD, with the diagnosis of R shoulder impingement syndrome for a total of 15 visit(s). Discharge Date: Please see the following information for a summary of their discharge status. Subjective Subjective: Pt reports her shoulder is much better now. Pain R shoulder: Pain Intensity (Out of 10): 4 Overall Improvement % Improvement: 80 Objective Objective/Function: R shoulder pain is 3-4/10 ROM: flex= 130, abd= 120 degrees MMT: flex= 14, abd= 21, ER= 21, IR=21 #F Pt is I with HEP Goals Goal 1:: Decrease R shoulder pain x 50% to aid with sleep Goal Progress: Goal Met Goal 2:: Increase R shoulder flex and abduction ROM x 30 degrees to aid with overhead lifting Goal 3:: Increase R shoulder strength to equal 90 percent of L shoulder strength to aid with IADL's Goal 4:: I with HEP Plan Plan: Discharge to HEP D/C Information d/c sentence: If there are questions or concerns regarding this patient's physical therapy, please feel free to call me at [phone]. Thank you for the referral of this patient. Sincerely, Troy Saunders, PT, ATC Balance/Gait/Functional tests Balance/Special Test Scores Quick DASH Score: 25.0000 Improvement % Improvement: 80
== END 2024-09-30 15:07 | disposition home or self-care (01) ==
LOC: PT 13:30
PROVIDERS: PCP Nurse Practitioner Family; Visit Provider Orthopaedic Surgery Sports Medicine
DX: M25.811 Other specified joint disorders, right shoulder (principal); M25.511 Pain in right shoulder
CPT/HCPCS: 97110; 97140; 97161; 97530

== ENCOUNTER 2024-10-02 09:07 | Emergency (ER) | payer BC, SELFPAY ==
[2024-10-02 09:07] VITALS: BP 145/101; PULSE 70; RESP 14; TEMP 36.1; O2SAT 98; BMI 41.5
[2024-10-02] MEDS: 0.9% Normal Saline (1000mL) 1,000 ML 1000 ML IV (09:51)
[2024-10-02 10:04] LABS: Red Blood Cells-Urine 0 SEEN /hpf (0-5)
[2024-10-02 10:08] LABS: Hematocrit 42.9 % (37-47); Hemoglobin 14.2 g/dL (12.0-15.0); Immature Granulocytes Count 0.020 X10^3/uL (0.0-0.0); Mean Corp Hgb Conc 33.1 g/dL (32-36); Mean Corpuscular Volume 79.3 fL (81-99); Mean Platelet Vol. 11.1 fl (6.2-12.0); NRBC Flagged by Analyzer 0 % (0-5); Platelet Count 285 K/mm3 (150-450); RBC Distribution Width CV 13.4 % (11.6-14.6); RBC Distribution Width SD 38.5 fl (35.1-43.9); Red Blood Count 5.41 M/mm3 (4.2-5.4); White Blood Count 8.4 K/mm3 (4.4-11.0)
[2024-10-02 10:12] LABS: Color, Urine Yellow (Yellow); Glucose, Dipstick Normal (Normal); Ketone-Dipstick 50 mg/dl (Negative); Leukocyte Esterase-Dipstick 25 /ul (Negative); Nitrite-Dipstick Negative (Negative); Occult Blood-Urine 10 /ul (Negative); Protein-Dipstick 30 mg/dl (Negative); Specific Gravity, Urine 1.015 (1.002-1.030); Urine Bilirubin Dipstick Negative (Negative)
[2024-10-02 10:20] LABS: Squamous Epithelial Cells - UA 0-5 SEEN /hpf (5-10)
[2024-10-02 10:21] LABS: Internal QC Validated? YES +Cl - CLEAR BKGD; Mucous, Urine 1+ /hpf (<or=2+); Pregnancy, Urine Negative Negative; Record Kit Lot#,Urine Preg 0000962302
[2024-10-02 10:54] LABS: AST(SGOT) 20 U/L (<=31); Alanine Aminotransfer ALT/SGPT 18 U/L (<=34); Albumin, Serum 4.5 g/dL (3.5-5.0); Alkaline Phosphatase 77 U/L (35-104); Anion Gap 14 (5-15); BUN 13 mg/dL (4-19); BUN/Creat Ratio 14.0 RATIO (10-20); Calcium,Total 9.7 mg/dL (7.6-11.0); Carbon Dioxide 24.6 mmol/L (21.0-32.0); Chloride 103 mmol/L (98-108); Estimated Creatinine Clearance 81.65 ml/min (50-250); Globulin 3.6 g/dL (2.2-4.2); Glucose 117 mg/dL (70-99); Lipase 17 U/L (13-75); Potassium 3.6 mmol/L (3.3-5.1)
[2024-10-02 12:23] VITALS: BP 177/66; PULSE 69; RESP 14; O2SAT 98
--- NOTE | 2024-10-02 12:31 | EX.ED.DYSGE1 ---
HPI History of Present Illness Chief Complaint: Nausea/Vomiting Narrative Narrative: Patient is a 53-year-old female presenting to the emergency department for nausea and vomiting. Patient has a past medical history as below. Patient states that starting Sunday evening she started to have nausea with a few episodes of nonbilious, nonbloody emesis. States that it continued yesterday as well as this morning. She became concerned today when she cannot tolerate her medications as her medications. She did try taking 1 dose of Zofran at home but vomited this back up. She has had 1 episode of emesis today. Denies fever, chills or chest pain or shortness of breath. Denies abdominal pain, diarrhea, constipation, dysuria or hematuria. [facility] Medical History Impingement of right shoulder Right shoulder pain Syncope Esophageal motility disorder Wears glasses Depression Alcohol use Arthritis Anemia DVT (deep venous thrombosis) Easy bruising Excessive bleeding Back pain Migraine headache Injury of head and neck Seizures Difficulty chewing History of IBS Non-smoker Hoarseness History of pain when walking History of echocardiogram Chest pain Kyphoscoliosis Dystonia Cognitive decline CTS (carpal tunnel syndrome) Abdominal pain Home Medications ?Medication ?Instructions ?Recorded ?Last Taken ?Type Ibuprofen [Motrin] 800 mg PO TID PRN PRN Pain #21 tabs 11/14/14 Unknown Rx aspirin 81 mg chewable tablet 81 mg PO DAILY@0800 08/26/19 10/22/23 History lacosamide 100 mg tablet 200 mg PO TID 08/26/19 10/23/23 History ondansetron 4 mg disintegrating 4 mg PO Q8H PRN PRN Nausea 08/26/19 Unknown History tablet oxybutynin chloride 5 mg tablet 5 mg PO DAILY 08/26/19 Unknown History cholecalciferol (vitamin D3) 50 50 mcg PO DAILY 05/15/22 Unknown History mcg (2,000 unit) capsule ferrous sulfate 325 mg (65 mg 325 mg PO DAILY 05/15/22 Unknown History iron) tablet baclofen 10 mg tablet 10 mg PO TID 08/09/22 12/08/22 History riboflavin (vitamin B2) 100 mg 200 mg PO BID 08/09/22 Unknown History tablet (Vitamin B-2) lisinopril 10 mg tablet 10 mg PO DAILY High Blood Pressure 10/03/23 10/23/23 History gabapentin 100 mg capsule 100 mg PO BID 05/06/24 Unknown History mirtazapine 7.5 mg tablet 7.5 mg PO QDAY 05/06/24 Unknown History Allergy/AdvReac Type Severity Reaction Status Date / Time Sulfa (Sulfonamide Allergy Unknown Verified 10/02/24 09:08 Antibiotics) Family History Father Diabetes Surgical History History of esophagogastroduodenoscopy (EGD) Hx of surgical procedure History of carpal tunnel release of both wrists Status post repair of nerve Social History Smoking Status: Never smoker alcohol intake: current ROS ROS ED ROS Narrative see HPI EXAM Physical Exam Narrative Exam Narrative: Vital signs: Reviewed General: Alert and orientedx3. No acute distress HEENT: Head is normocephalic and atraumatic, sinuses nontender, pupils equal round and reactive. Nares are patent. Oropharynx and throat exams normal. Neck: Supple without lymphadenopathy nontender Cardiovascular: Regular rate and rhythm, no murmurs. No rubs or gallops. Normal S1 and S2 Respiratory: Clear to auscultation bilaterally. No wheezes, rales, rhonchi Abdominal: Soft and nontender on palpation. Normal bowel sounds. No guarding or rebound. Nonsurgical abdomen Extremities: No tenderness. No bruising. Normal range of motion. Normal sensation. Skin: No rash or redness. Neurological: Cranial nerves II through XII are grossly intact. Normal strength and sensation. Normal cerebellar function The rest of the physical exam is unremarkable Const Vital Signs: 10/02/24 09:07 10/02/24 12:23 10/02/24 13:18 Temperature 97 F L 97.2 F L Temperature Source Temporal Pulse Rate 70 69 61 Respiratory Rate 14 14 17 Blood Pressure 145/101 H 177/66 H 159/80 H Blood Pressure Mean 115 103 106 Pulse Ox 98 98 100 Oxygen Delivery Method Room Air Room Air MDM MDM MDM Narrative Medical decision making narrative: Patient is a 53-year-old female presenting emergency department for vomiting. She was seen and examined. Vitals are stable, resting in bed comfortably. No acute distress. Patient given fluids and Zofran. Given patient's abdominal exam is unremarkable I do not think it is necessary to obtain CT imaging at this time. Will start with labs. CBC with no leukocytosis and a normal hemoglobin. CMP with no significant abnormalities. Lipase within normal limits. Urinalysis with no nitrates or WBCs. There is mild bacteria but do not suspect UTI. Urine negative. Patient was reevaluated. She is feeling improved after medications. She was able to tolerate p.o. Patient states she has a prescription at home for p.o. Zofran and will use this if needed. Patient was instructed to return if she develops any abdominal pain, fevers or cannot tolerate p.o. at home. Patient agreeable plan. Patient discharged from the Emergency Department. I do not feel that the patient's evaluation reveals any acute reason for admission at this time. I instructed them to either follow-up with their primary care physician or promptly return to the Emergency Department for reevaluation should symptoms worsen or new symptoms develop. I explained what symptoms would indicate the need to return to the emergency department. Shared decision making was used. The patient voiced understanding of the treatment plan and is agreeable with it. Clinical impression Nausea/vomiting History & Record Review Discussion w/independent historian: Patient Lab Data Attestation: I reviewed the patient's lab results. Labs: Laboratory Results - last 24 hr 10/02/24 09:35 WBC 8.4 RBC 5.41 H Hgb 14.2 Hct 42.9 MCV 79.3 L MCH 26.2 L MCHC 33.1 RDW Std Deviation 38.5 RDW Coeff of Martínez 13.4 Plt Count 285 MPV 11.1 Immature Gran % (Auto) 0.200 Neut % (Auto) 74.0 H Lymph % (Auto) 19.1 [place] % (Auto) 5.2 Eos % (Auto) 0.8 Baso % (Auto) 0.7 Absolute Neuts (auto) 6.2 Absolute Lymphs (auto) 1.61 Nucleated RBC % 0 Sodium 141 Potassium 3.6 Chloride 103 Carbon Dioxide 24.6 Anion Gap 14 BUN 13 Creatinine 0.91 Estim Creat Clear Calc 81.65 Est GFR (MDRD) Non-Af 74 BUN/Creatinine Ratio 14.0 Glucose 117 H Calcium 9.7 Total Bilirubin 1.02 AST 20 ALT 18 Alkaline Phosphatase 77 Total Protein 8.0 Albumin 4.5 Globulin 3.6 Albumin/Globulin Ratio 1.3 Lipase 17 Urine Color Yellow Urine Clarity Sl. Cloudy Urine pH 6.5 Ur Specific [place] 1.015 Urine Protein 30 H Urine Glucose (UA) Normal Urine Ketones 50 H Urine Occult Blood 10 H Urine Nitrite Negative Urine Bilirubin Negative Urine Urobilinogen Normal Ur Leukocyte Esterase 25 H Urine RBC 0 SEEN Urine WBC 0-5 SEEN Ur Squamous Epith Cells 0-5 SEEN Urine Bacteria 2+ Hyaline Casts 0-5 SEEN Urine Mucus 1+ Urine Test Negative Discharge Plan Triage Chief Complaint: Nausea/Vomiting ED Provider: Marlen Chan Dx/Rx/DC Orders Clinical Impression: Nausea & vomiting Instructions: ED Vomiting (Adult) Prescriptions: No Action cholecalciferol (vitamin D3) 50 mcg (2,000 unit) capsule 50 mcg PO DAILY ferrous sulfate 325 mg (65 mg iron) tablet 325 mg PO DAILY gabapentin 100 mg capsule 100 mg PO BID mirtazapine 7.5 mg tablet 7.5 mg PO QDAY Ibuprofen [Motrin] 800 MG tablet 800 mg PO TID PRN PRN (Reason: Pain) Qty: 21 0RF aspirin 81 MG tablet,chewable 81 mg PO DAILY@0800 oxybutynin chloride 5 MG tablet 5 mg PO DAILY ondansetron 4 MG tablet 4 mg PO Q8H PRN PRN (Reason: Nausea) lacosamide 100 MG tablet 200 mg PO TID baclofen 10 mg tablet 10 mg PO TID riboflavin (vitamin B2) [Vitamin B-2] 100 mg tablet 200 mg PO BID lisinopril 10 mg tablet 10 mg PO DAILY Patient Comments: Had to cut the pill in half. Primary Care Provider: Geetha Parrish Referrals: Geetha Parrish NP-C [Primary Care Provider] - 2 Days Activity Restrictions/Additional Instructions: Take your Zofran every 8 hours as needed for nausea and vomiting. If you develop worsening abdominal pain, nausea vomiting or you cannot keep down liquids or your medications, fever or chills you need to return to the ED immediately. Your evaluation in the Emergency Department did not reveal any acute reason for admission. However, I want to emphasize that you may be early in the course of a disease process or illness even if it is not present. For this reason you should follow-up within 24 hours for reevaluation with either your primary care physician or if necessary back here in the Emergency Department. You should return to the Emergency Department immediately if your symptoms worsen or new symptoms develop. Print Language: Macedonian Disposition Disposition: Home, Self Care Discharge Date/Time: 10/02/24 13:20
[2024-10-02 13:18] VITALS: BP 159/80; PULSE 61; RESP 17; TEMP 36.2; O2SAT 100
== END 2024-10-02 13:20 | disposition home or self-care (01) ==
PROVIDERS: Emergency Provider Student in an Organized Health Care Education/Training Program; PCP Nurse Practitioner Family; Visit Provider Student in an Organized Health Care Education/Training Program
DX: R11.2 Nausea with vomiting, unspecified (principal); Z86.718 Personal history of other venous thrombosis and embolism
CPT/HCPCS: 80053; 81001; 81025; 83690; 85025; 96361; 96374; 96376; 99283; A4216; J2405

== ENCOUNTER 2025-01-06 12:11 | Day surgery (SDC) | payer BC, SELFPAY ==
[2025-01-06] VITALS (8 sets, daily range): BP systolic 110–153; BP diastolic 57–91; PULSE 63–95; RESP 16–18; TEMP 36.1–37.2; O2SAT 95–100; BMI 29.2
--- NOTE | 2025-01-06 12:20 | PCM.HP.STD ---
HPI - General General Date of Admission: 01/06/25 Date of Service: 01/06/25 Chief Complaint: achalasia HPI Narrative JULIAN BLACK, is a 54 F who presents for egd with botox. She has been intermittent issues suggesting the prior Botox effect has worn off. Last night there was severe pain that kept the patient awake. Describes food feeling like it sits in the esophagus and needing multiple glasses of water at meals to help food move down. Symptoms include chest pain and difficulty swallowing when episodes occur. Has never taken nitroglycerin before. nitroglycerin do not exceed 3 doses per episode 0.3 mg sublingual Q5M PRN 30 tabs 0RF chest pain ] [facility] Medical History Orthostatic hypotension Impingement of right shoulder Right shoulder pain Syncope Esophageal motility disorder Wears glasses Depression Alcohol use Arthritis Anemia DVT (deep venous thrombosis) Easy bruising Excessive bleeding Back pain Migraine headache Injury of head and neck Seizures Difficulty chewing History of IBS Non-smoker Hoarseness History of pain when walking History of echocardiogram Chest pain Kyphoscoliosis Dystonia Cognitive decline CTS (carpal tunnel syndrome) Abdominal pain Home Medications Medication Instructions Recorded Last Taken Type Ibuprofen [Motrin] 800 mg PO TID PRN PRN Pain #21 tabs 11/14/14 Unknown Rx aspirin 81 mg chewable tablet 81 mg PO DAILY@0800 08/26/19 10/22/23 History ondansetron 4 mg disintegrating 4 mg PO Q8H PRN PRN Nausea 08/26/19 Unknown History tablet cholecalciferol (vitamin D3) 50 50 mcg PO DAILY 05/15/22 Unknown History mcg (2,000 unit) capsule ferrous sulfate 325 mg (65 mg 325 mg PO DAILY 05/15/22 Unknown History iron) tablet baclofen 10 mg tablet 10 mg PO TID 08/09/22 12/08/22 History riboflavin (vitamin B2) 100 mg 200 mg PO BID 08/09/22 Unknown History tablet (Vitamin B-2) lisinopril 10 mg tablet 10 mg PO DAILY High Blood Pressure 10/03/23 10/23/23 History gabapentin 100 mg capsule 100 mg PO TID 05/06/24 Unknown History nitroglycerin 0.3 mg sublingual 0.3 mg sublingual Q5M PRN chest 12/17/24 Unknown Rx tablet pain #30 tabs pantoprazole 20 mg tablet,delayed 20 mg PO QDAY 12/17/24 Unknown History release lacosamide 200 mg tablet 200 mg PO TID Seizures 12/31/24 Unknown History oxybutynin chloride 15 mg 15 mg PO DAILY 12/31/24 Unknown History tablet,extended release 24 hr Allergy/AdvReac Type Severity Reaction Status Date / Time Sulfa (Sulfonamide Allergy Unknown Verified 12/31/24 08:12 Antibiotics) Family History Father Diabetes Surgical History History of esophagogastroduodenoscopy (EGD) Hx of surgical procedure History of carpal tunnel release of both wrists Status post repair of nerve Social History Smoking Status: Never smoker alcohol intake: current ROS Constitutional Constitutional: Denies fatigue, fever(s), poor appetite, weight gain or weight loss Gastrointestinal Gastrointestinal: Denies belching, bloating, change in bowel habits, change in stool character, chewing difficulty, coffee ground emesis, constipation, cramping, diarrhea, dyspepsia, dysphagia, early satiety, excessive flatus, fecal incontinence, heartburn, hematemesis, hematochezia, hemorrhoids, loose stools, melena, nausea, odynophagia, rectal bleeding, tenesmus, vomiting or weight changes Physical Exam Const alert, oriented x3, no apparent distress and healthy appearing General Appearance: cooperative GI normal to inspection, nondistended, normoactive bowel sounds, soft to palpation, non-tender and non-distended Percussion: normal to percussion Rectal Exam: deferred Assessment & Plan Assessment/Plan (1) Dysphagia: QUALIFIERS: Dysphagia type: esophageal phase Qualified Code(s): R13.19 - Other dysphagia PLAN: Assessment and Plan Assessment and Plan (1) Dysphagia: Status: Chronic Qualifiers: Dysphagia type: esophageal phase Qualified Code(s): R13.19 - Other dysphagia Plan: 48-year-old female with an 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 Her initial evaluation was back in 2012 where she underwent a modified barium swallow for esophageal dysphagia. This was after she was intubated due to a baclofen overdose. Initially she thought it was from trauma. The documentation from that initial evaluation by speech pathology had determined that she did have mild oropharyngeal dysphagia. Since then she has had a TIA in diagnosed with a seizure disorder. She is being followed by neurology at [facility] and they are managing her without a baclofen pump pump. She does take baclofen orally. She is having liquid and solid food dysphagia. Her latest modified barium swallow was in June 2019 and June 2022. Both of those studies did not show mild oropharyngeal dysphagia and mild esophageal dysphagia. She has never undergone esophageal manometry or an upper endoscopy. I explained to her that the differential diagnosis would be a progressive neurologic disorder causing symptoms of esophageal dysphagia and oropharyngeal dysphagia. I am hoping that we will be able to have a mechanical issue that can be fixed endoscopically such as dilation or injection with a muscle relaxant such as Botox. Chest pain associated with swallowing difficulty : Patient experiences episodic chest pain and difficulty swallowing; has not used nitroglycerin before. - Provide nitroglycerin for on-demand use when an episode begins to temporarily relieve symptoms. - Counseled that nitroglycerin may lower blood pressure, especially if taken two or three times in a row; typically only one dose is needed. Esophageal dysfunction with prior Botox : Patient reports that benefits from prior Botox have worn off, with recurrence of symptoms. - Arrange repeat Botox treatment Portions of this note were generated using voice recognition software ([employer]). I have reviewed the contents and every effort has been made to ensure accuracy; however, inadvertent errors in grammar, spelling, punctuation, or word choice may occur, that were not noted before signing the document and should not alter the intended clinical meaning. (2) Constipation: Status: Chronic Qualifiers: Constipation type: slow transit constipation Qualified Code(s): K59.01 - Slow transit constipation Plan: She does have constipation but I think it is secondary to muscle relaxants that she is using on a daily basis. That is not much of a concern to her as the dysphagia is at this time. For now we will recommend osmotic laxatives and fiber supplementation on a daily basis. Medications: New
[2025-01-06 12:30] LABS: Internal QC Validated? YES +Cl - CLEAR BKGD
[2025-01-06 12:31] LABS: Pregnancy, Urine Negative Negative; Record Kit Lot#,Urine Preg 980607
[2025-01-06] MEDS: Lactated Ringers 1,000 ML 15 ML IV (13:15)
--- NOTE | 2025-01-06 13:27 | PRE.ANES_ITS ---
ASA Classification* ASA Classification ASA Classification: 3 Assessment & Plan Anesthesia* Anesthesia Assessment Anesthesia Assessment: Discussed sedation and/or anesthesia options, risks, benefits, and alternatives with patient/parents/legal guardian/POA. Questions invited. The patient/parents/legal guardian/POA seems to understand and agrees to proceed with anesthesia plan. Reviewed the physical assessment, medical history, allergy history and patient home medications list prior to surgery/procedure/anesthetic and documented any changes. Performed airway and anesthesia risk assessments. Anesthesia Type Anesthesia Type: MAC History Source History Obtained from:: Patient and Chart Anesthesia Focused Assessment* Temperature: 98.9 F Pulse Rate: 63 Blood Pressure: 153/63 Respiratory Rate: 18 Pulse Ox: 100 Oxygen Delivery Method: Room Air Airway Assessment Mouth opens: 2 cm Mallampati Score: IV Teeth Condition: Intact Neck Range of motion (ROM): Limited ROM (Severe Restriction) Labs Anesthesia Preop lab: CBC WBC, (4.4-11.0) 8.4 K/mm3 10/02/24, 09:35 RBC, (4.2-5.4) 5.41 M/mm3 H 10/02/24, 09:35 Hgb, (12.0-15.0) 14.2 g/dL 10/02/24, 09:35 Hct, (37-47) 42.9 % 10/02/24, 09:35 Plt Count, (150-450) 285 K/mm3 10/02/24, 09:35 CHEMISTRY Potassium, (3.3-5.1) 3.6 mmol/L 10/02/24, 09:35 Sodium, (133-145) 141 mmol/L 10/02/24, 09:35 Magnesium, (1.6-2.6) 2.1 mg/dL 11/04/17, 19:20 BUN, (4-19) 13 mg/dL 10/02/24, 09:35 Creatinine, (0.70-1.20) 0.91 mg/dL 10/02/24, 09:35 Glucose, (70-99) 117 mg/dL H 10/02/24, 09:35 TSH, (0.358-3.74) 2.08 uIU/mL 11/04/17, 19:20 COAG PT, (11.7-14.9) 13.2 SECONDS 18, 19:20 Urine Test Negative Negative Today, 11:20 Pre-Assessment Diagnosis/Proposed Procedure Planned Operative Procedure(s): egd. botox Anesthesia History Anesthesia History - dianetic counselor: Anesthesia History - dianetic counselor Hx Hospitalization No 12/31/24 08:16 Any Problems With Anesthesia No 12/31/24 08:16 Cholinesterase deficiency No 12/31/24 08:16 You/Your Family Experience No 12/31/24 08:16 fever (hyperthermia) with Relationship Recent Exposure to Contagious No 01/06/25 13:11 Disease Does patient have nerve No 12/31/24 08:16 stimulator Patient instructed to have device shut off --Does patient have Pacemaker No 01/06/25 13:11 or ICD? When Was Last Pacemaker Check QUESTION #4 FULL TEXT: You/Your Family Experience fever (hyperthermia) with Anesthesia Last Oral Intake Last Oral intake: Last Oral Intake NPO since 08:00 01/06/25 13:11 Meds taken in AM with sips of Yes 01/06/25 13:11 water? Meds patient instructed to SEE MED REC 01/06/25 13:11 take am of surgery Any additional information?: Yes Meds taken in AM with sips of water?: Yes PONV PONV - dianetic counselor: PONV - dianetic counselor Female Yes 12/31/24 08:16 HX of Motion Sickness Yes 12/31/24 08:16 HX of N/V After Surgery No 12/31/24 08:16 Non-Smoker Yes 12/31/24 08:16 Duration of Surgery greater No 12/31/24 08:16 than 60 minutes Number of Risk Factors 3 12/31/24 08:16 PONV Score Moderate Risk 12/31/24 08:16 Height & Weight Height & Weight: Anesthesia: Height & Weight Height 5 ft 3 in 01/06/25 13:11 Weight: 75 kg 01/06/25 13:11 Body Mass Index (BMI) 29.2 01/06/25 13:11 Respiratory Assessment Respiratory Assessment - dianetic counselor: Respiratory Tract Infection Hx - dianetic counselor Hx Respiratory Tract Infection No 12/31/24 08:16 STOP Sleep Apnea STOP Sleep Apnea - dianetic counselor: STOP Sleep Apnea - dianetic counselor Hx Hypertension Yes: LISINOPRIL, CONTROLLED 12/31/24 08:16 WITH MED Hx Sleep Apnea No 12/31/24 08:16 CPAP BIPAP Do you snore loudly (louder No 12/31/24 08:16 than talking or can be heard Do you often feel tired/ No 12/31/24 08:16 fatigued/ sleepy during daytime? Has anyone observed you stop No 12/31/24 08:16 breathing during sleep? STOP Results Negative 12/31/24 08:16 QUESTION #5 FULL TEXT : Do you snore loudly (louder than talking or can be heard through closed doors)? Tobacco Use History Tobacco Use History - dianetic counselor: Tobacco Use History - dianetic counselor Tobacco Use Smoking Status Never smoker 12/31/24 08:16 Hx Tobacco Use No 12/31/24 08:16 Years Smoking Packs Smoked per Day Smoking Cessation Date was within the last 15 years Hx Smoking Cessation Date Hx Smoking Cessation No 12/31/24 08:16 Counseling Hematologic Medial History Hematologic Hx - dianetic counselor: Hematologic Medical Hx - rn clinical documentation Hx of Blood Transfusion No 12/31/24 08:16 Hx of Transfusion in last 3 No 12/31/24 08:16 Months Date of Last Transfusion (if within last 3 months) Ever experience any problems No 12/31/24 08:16 with transfusion(s)? Specify any problems Hx of Preganancy in last 3 N/A 12/31/24 08:16 Months Nurse Filling Out Transfusion NBUCHER 12/31/24 08:16 & Questions: Date: 12/31/24 12/31/24 08:16 Time: 08:19 12/31/24 08:16 Patient unable to answer at this time (ie. confused, unrespo /Reproduction History /Reproductive History - dianetic counselor: /Reproductive Hx- dianetic counselor Hx Now No 12/31/24 08:16 Gestational Age (in weeks): EDC: Hx Hx Para Hx Section SAB No 12/31/24 08:16 Does the father of the baby or his family experience fever w Father of the baby Malignant Hypertension history comment Active Medications Active Medications: Current Medications Generic Name Dose Route Start Last Admin Trade Name Freq PRN Reason Stop Dose Admin Lactated Ringer's 1,000 mls @ 15 mls/hr 01/06/25 12:15 01/06/25 13:15 IV 15 mls/hr .Q48H MERY Administration PFSH Medical History Orthostatic hypotension Impingement of right shoulder Right shoulder pain Syncope Esophageal motility disorder Wears glasses Depression Alcohol use Arthritis Anemia DVT (deep venous thrombosis) Easy bruising Excessive bleeding Back pain Migraine headache Injury of head and neck Seizures Difficulty chewing History of IBS Non-smoker Hoarseness History of pain when walking History of echocardiogram Chest pain Kyphoscoliosis Dystonia Cognitive decline CTS (carpal tunnel syndrome) Abdominal pain Home Medications Medication Instructions Recorded Last Taken Type Ibuprofen [Motrin] 800 mg PO TID PRN PRN Pain # 21 tabs 11/14/14 Unknown Rx aspirin 81 mg chewable tablet 81 mg PO DAILY@0800 07/02/2410/22/23 History ondansetron 4 mg disintegrating 4 mg PO Q8H PRN PRN Na usea 08/26/19 Unknown History tablet cholecalciferol (vitamin D3) 50 50 mcg PO DAILY Unknown History mcg (2,000 unit) capsule ferrous sulfate 325 mg (65 mg 325 mg PO DAILY 05/15/22 Unknown History iron) tablet baclofen 10 mg tablet 10 mg PO TID 08/09/22 History riboflavin (vitamin B2) 100 mg 200 mg PO BID 08/09/22 Unknown History tablet (Vitamin B-2) lisinopril 10 mg tablet 10 mg PO DAILY High Blood Pr essure 10/03/23 10/23/23 History gabapentin 100 mg capsule 100 mg PO TID 05/06/24 Unkno wn History nitroglycerin 0.3 mg sublingual 0.3 mg sublingual Q5M PRN chest 12/17/24 Unknown Rx tablet pain #30 tabs pantoprazole 20 mg tablet,delayed 20 mg PO QDAY Unknown History release lacosamide 200 mg tablet 200 mg PO TID Seizures 12/3101/06/25 08:00 History oxybutynin chloride 15 mg 15 mg PO DAILY 12/31/24 Unkn own History tablet,extended release 24 hr Allergy/AdvReac Type Severity Reaction Status Date / Time Sulfa (Sulfonamide Allergy Unknown Verified 01/06/25 13:09 Antibiotics) Family History Father Diabetes Surgical History History of esophagogastroduodenoscopy (EGD) Hx of surgical procedure History of carpal tunnel release of both wrists Status post repair of nerve Social History Smoking Status: Never smoker alcohol intake: current Review of Systems (Anesthesia) ROS Narrative System reviewed and no additional complaints, except as documented.
--- NOTE | 2025-01-06 13:30 | EGD_PTH ---
PATIENT: JULIAN BLACK LOC: EN U#:[id number] AGE/SX: 54/F ROOM: RE01/06/[address]: Dr. Jw Arthur DO : 1970 BED: DIS: 01/06/2025 SPEC #: [id number] RECD: 01/06/25 14:21 STATUS: EDER RECharissa #: [id number] GARCIA: 01/06/25 13:[address]: Jw Arthur DEPT: SURGICAL PATHOLOGY RECD BY: Wendy Evangelista ENTERED: 01/06/25 14:37 SP TYPE: EGD BIOPSY CONCHA DR: MAXINE MarieC ARAVIND Marie Tissues: Esophagus, NOS Procedures: Surgery Specimen Level IV HEADER OPERATION: EGD, Botox Injection, biopsy PRE-OP DIAGNOSIS: Dysphagia TISSUE SUBMITTED: A- Random esophagus biopsy MICROSCOPIC DIAGNOSIS A. Esophagus, random, biopsy: - Benign squamous mucosa, negative for eosinophils. MICROSCOPIC DESCRIPTION Slides are reviewed. GROSS DESCRIPTION A. Received in fixative is one container labeled with the patient's name and designated "Random esophagus biopsy." The specimen consists of three irregular fragments of jett tissue that measure 0.2 to 0.3 cm. The specimen is totally submitted in one cassette. ID 01/06/2025 CPT:72713
[2025-01-06] MEDS: 0.9% Saline Lock 10 ML Syringe IV (13:57)
[2025-01-06] MEDS: 0.9% Normal Saline (Pres. free 10 ML Vial (13:57)
--- NOTE | 2025-01-06 14:07 | OP.EGD_ITS ---
Patient Name: Ju Wan Procedure Date: 01/06/2025 1:42 PM Date of : 1970 Age: 54 Procedure: Upper GI endoscopy Indications: Dysphagia, For botulinum toxin injection of achalasia, Personal history of upper GI endoscopy Providers: Jw Arthur DO Referring MD: Bhavin Marie Medicines: Monitored Anesthesia Care Patient Profile: This is a 54 year old female. Refer to note in patient chart for documentation of history and physical. Patient has symptoms of chronic chest pain and dysphagia with both liquids and solids. Her most recent EGD for biopsy and EGD for dilation. Complications: No immediate complications. Procedure: Pre-Anesthesia Assessment: - Prior to the procedure, a History and Physical was performed, and patient medications and allergies were reviewed. The patient is competent. The risks and benefits of the procedure and the sedation options and risks were discussed with the patient. All questions were answered and informed consent was obtained. Patient identification and proposed procedure were verified. Mental Status Examination: alert and oriented. Airway Examination: normal oropharyngeal airway and neck mobility. Respiratory Examination: clear to auscultation. CV Examination: normal. Prophylactic Antibiotics: The patient does not require prophylactic antibiotics. Prior Anticoagulants: The patient has taken no anticoagulant or antiplatelet agents except for NSAID medication. ASA Grade Assessment: II - A patient with mild systemic disease. After reviewing the risks and benefits, the patient was deemed in satisfactory condition to undergo the procedure. The anesthesia plan was to use monitored anesthesia care (MAC). Immediately prior to administration of medications, the patient was re-assessed for adequacy to receive sedatives. The heart rate, respiratory rate, oxygen saturations, blood pressure, adequacy of pulmonary ventilation, and response to care were monitored throughout the procedure. The physical status of the patient was re-assessed after the procedure. After obtaining informed consent, the endoscope was passed under direct vision. Throughout the procedure, the patient's blood pressure, pulse, and oxygen saturations were monitored continuously. The Endoscope was introduced through the mouth, and advanced to the second part of duodenum. The upper GI endoscopy was accomplished without difficulty. The patient tolerated the procedure well. Scope In: 1:54:36 PM Scope Out: 2:00:46 PM Total Procedure Duration Time 0 hours 6 minutes 10 seconds Findings: Mucosal changes including small-caliber esophagus and crepe paper esophagus were found in the middle third of the esophagus and in the lower third of the esophagus. Esophageal findings were graded using the Eosinophilic Esophagitis Endoscopic Reference Score (EoE-EREFS) as: Edema Grade 1 Present (decreased clarity or absence of vascular markings), Rings Grade 1 Mild (subtle circumferential ridges seen on esophageal distension), Exudates Grade 0 None (no white lesions seen) and Furrows Grade 1 Mild (vertical lines without visible depth). Biopsies were obtained from the proximal and distal esophagus with cold forceps for histology of suspected eosinophilic esophagitis. Verification of patient identification for the specimen was done. Estimated blood loss was minimal. Abnormal motility was noted in the esophagus. The cricopharyngeus was abnormal. There are extra peristaltic waves in the esophageal body. The distal esophagus/lower esophageal sphincter is spastic, but gives up passage to the endoscope. Area was successfully injected with 100 units botulinum toxin. No gross lesions were noted in the entire examined stomach. A small hiatal hernia was present. No gross lesions were noted in the entire examined duodenum. Impression: - Esophageal mucosal changes consistent with eosinophilic esophagitis. - Abnormal esophageal motility, established achalasia. Injected with botulinum toxin. - No gross lesions in the entire stomach. - Small hiatal hernia. - No gross lesions in the entire examined duodenum. - Biopsies were taken with a cold forceps for evaluation of eosinophilic esophagitis. Recommendation: - Discharge patient to home. - Resume previous diet. - Continue present medications. - Await pathology results. Procedure Code(s): --- Professional --- 61501, Esophagogastroduodenoscopy, flexible, transoral; with biopsy, single or multiple 05596, 59,51, Esophagogastroduodenoscopy, flexible, transoral; with directed submucosal injection(s), any substance CPT copyright 2021 [employer]. All rights reserved. The codes documented in this report are preliminary and upon wireline operator review may be revised to meet current compliance requirements. Jw Arthur DO 01/06/2025 2:07:22 PM This report has been signed electronically. Number of Addenda: 0 Note Initiated On: 01/06/2025 1:42 PM
--- NOTE | 2025-01-06 14:07 | OP.PROVAT_ITS ---
01/06/2025 Bhavin Marie Re : Upper GI endoscopy procedure for Ju Wan Dear Shivani This procedure was performed on Monday, January 06, 2025. My impressions and recommendations are as follows: Impressions : - Esophageal mucosal changes consistent with eosinophilic esophagitis. - Abnormal esophageal motility, established achalasia. Injected with botulinum toxin. - No gross lesions in the entire stomach. - Small hiatal hernia. - No gross lesions in the entire examined duodenum. - Biopsies were taken with a cold forceps for evaluation of eosinophilic esophagitis. Recommendations : - Discharge patient to home. - Resume previous diet. - Continue present medications. - Await pathology results. My findings are described in the full procedure note, which is enclosed. If I can be of further assistance, please feel free to contact me at . Sincerely, Jw Friend, 01/06/2025 2:07:22 PM This report has been signed electronically.
--- NOTE | 2025-01-06 14:17 | PCM.POST.ANE ---
Anesthesia: Postop Eval I Current Vital Signs Temperature: 97.2 F Pulse Rate: 81 Blood Pressure: 134/60 Respiratory Rate: 16 Pulse Ox: 95 Oxygen Delivery Method: Room Air Assessment Airway patent: Yes Spontaneous unlabored respirations: Yes Mental status: Asleep nausea: No Vomiting: No Anesthesia Complication: No Fluid Hydration Crystalloid volume administer (ml): 400 Total IV fluid infused: 400 Progress Note Anesthesia document: Postop Eval 1 completed: Yes
--- NOTE | 2025-01-06 20:32 | PCM.POSTANE2 ---
Anesthesia Postop Eval I Sum Postop Eval Completion status Anesthesia document: Postop Eval 1 completed: Yes Anesthesia Postop Eval I Summary Anesthesia Postop Eval I Summary: Anesthesia Postop Eval I: Assessment Summary Airway patent Yes 01/06/25 14:18 [email or web address] Spontaneous unlabored Yes 01/06/25 14:18 [email or web address] respirations Mental status Asleep 01/06/25 14:18 [email or web address] nausea No 01/06/25 14:18 [email or web address] Vomiting No 01/06/25 14:18 [email or web address] Anesthesia Postop Eval I: Fluid Summary Crystalloid volume administer 400 01/06/25 14:18 [email or web address] (ml) Colloids volume administered ( ml) Blood Product volume administered (ml) Total IV fluid infused 400 01/06/25 14:18 [email or web address] Anesthesia Postop Eval I: Summary Notes Anesthesia Complication No 01/06/25 14:18 [email or web address] Anesthesia Complication Comment: Post-operative progress note Anesthesia: Postop Eval II Evaluation Mental status: Awake and Calm Pain Level: 0 nausea: No Vomiting: No Complications Anesthesia Complication: No
== END 2025-01-06 15:27 | disposition home or self-care (01) ==
LOC: EN 12:11 → AC 12:13
PROVIDERS: Student in an Organized Health Care Education/Training Program; PCP Nurse Practitioner Family; Referring Provider Nurse Practitioner Family; Visit Provider Internal Medicine Gastroenterology
PROC: 0DJ08ZZ Inspection of Upper Intestinal Tract, Via Natural or Artificial Opening Endoscopic (ICD-10-PCS; CPT 43235; principal; 2025-01-06 13:25)
DX: R13.10 Dysphagia, unspecified (principal); K44.9 Diaphragmatic hernia without obstruction or gangrene; K22.0 Achalasia of cardia; Z86.73 Personal history of transient ischemic attack (TIA), and cerebral infarction without residual deficits; K30 Functional dyspepsia
CPT/HCPCS: 43236; 43239; 81025; 88305; A4216; J0585; J2405